=== PATIENT | male | born 1955 | race Caucasian/White ===

== ENCOUNTER 2024-08-08 08:56 | Inpatient (IN) ==
--- NOTE | 2024-08-03 08:47 | Anesthesiology Consultation ---
Date of Service August 03, 2024 Assessment & Plan (1) Encounter for pre-operative examination: - check BMP STAT am DOS, fluid orders to assigned anesthesiologist review of BMP DOS. - surgeon H&P 08/07/24: "...will need to be evaluated by his global cto Dr. Margarita pfeiffer prior to the procedure. He has an appointment later this month we will attempt to move up..." I contacted surgeon's office and Miriam while speaking with Dr. Haywood advised that clearance/more recent evaluation did not occur but that Dr. Haywood advised given most recent echocardiogram he is now not requiring a cardiology evaluation prior to surgery and will addend his note the day of surgery. Case reviewed with Dr. Fonseca who advised nothing additional needed from his standpoint. - Case discussed in detail with Dr. Fonseca including congestive changes on pre- op CXR and creatinine at 1.8 with last comparison 1.7 in 2021 without renal disease listed in PMHx. He advised repeat BMP DOS and otherwise patient is acceptable to proceed. - Medtronic ICD. Case discussed with Dr. Fonseca who advised Medtronic rep is not needed for ICD. - EP 05/04/24: "...persistent atrial arrhythmia that is organized and resulting in worsening heart failure symptoms...cardioversion resulted in early recurrence of this arrhythmia...to undergo ablation sooner than later...opening next week..." - cardiology office visit 03/20/24: "...blood pressure in the 90s systolic...severe 3 vessel CAD with total occlusion of the RCA with left to right collaterals...total occlusion of the mid circumflex with left to left collaterals and a 70% mid LAD lesion and an 80% small apical LAD lesion. Severely dilated Lv with multiple regional wall motion abnormalities and an EF of 25% with severe mitral regurgitation and type 2 diastolic dysfunction...EF 35% which is improved postoperatively...s/p CABG x 3 TRAMMELL to LAD, SVG to the OM and an SVG to the PDA and mitral valve replacement...recurrent atrial flutter...opinion from electrophysiology..." - Per nurse practitioner home assessments on 07/27/24: No known infectious disease contacts, current infectious disease symptoms in past 10 days or COVID positive test result in the past 30 days. Chart Review Chart Review: Acceptable Risk for Surgery and Patient NOT seen in Pre Admission Testing History Surgery Operation Date: 08/08/24 10:10 Proposed Procedures p Endovascular Repair of an Abdominal Aortic Aneurysm - Kel Haywood MD Height/Weight Height: 6 ft 2 in Weight: 88.451 kg Allergies Allergy/AdvReac Type Severity Reaction Status Date / Time ezetimibe [From Zetia] Allergy Intermediate Rash Verified 07/27/24 11:45 atorvastatin [From Lipitor] AdvReac Unknown pancreatiti Verified 07/27/24 11:45 s Medications Home Medications Medication Instructions Recorded Confirmed Last Taken aspirin 81 mg tablet,delayed 81 mg PO QAM 11/28/18 07/27/24 02/11/24 release (Aspir-) metoprolol succinate 25 mg 25 mg PO QAM 11/28/18 07/27/24 02/11/24 tablet,extended release 24 hr sacubitril 24 mg-valsartan 26 mg 1 tab PO BID 07/28/21 07/27/24 02/11/24 tablet (Entresto) allopurinol 100 mg tablet 100 mg PO BID 02/03/24 07/27/24 02/10/24 apixaban 5 mg tablet (Eliquis) 5 mg PO BID 02/03/24 07/27/24 02/08/24 metoprolol succinate 50 mg 50 mg PO HS 02/03/24 07/27/24 02/10/24 tablet,extended release 24 hr omega 0-gef-oyh-fish oil 900 1 cap PO Q3D 02/03/24 07/27/24 02/07/24 mg-1,400 mg capsule,delayed release amoxicillin 500 mg tablet 2,000 mg PO UD PRN dental 07/27/24 07/27/24 Unknown procedures bumetanide 1 mg tablet 1 mg PO 3XWK 07/27/24 07/27/24 Unknown colchicine 0.6 mg capsule 0.6 mg PO UD PRN gout flare 07/27/24 07/27/24 Unknown Past Medical History Medical History (Updated 08/03/24 @ 08:40 by Jacqueline Arreaga PA-C) Aortic aneurysm 4.8, checked in Nov [address] Haywood Atrial fibrillation hx PVC's after heart surgery, dx with Afib approx October 2023; f/u fragin, psh CAD (coronary artery disease) CABG x 3 in 2021 CHF (congestive heart failure) follows with Dr. Rodriguez Familial tremor Gout History of cardioversion [facility], 2023 History of COVID-13 Dec 2023 > resolved History of kidney stones Hx of myocardial infarction 2021 Hyperlipidemia ICD (implantable cardioverter-defibrillator) in place Medtronic, placed 01/2022, [facility] Past Family History Family History Father Myocardial infarction Past Surgical History Surgical History History of cardiac ablation for atrial fibrillation [facility], 2023 History of cardiac cath 2021 > no stents History of colonoscopy (2023) History of coronary artery bypass graft 3 vessels > 2021 at [facility] History of cystoscopy History of heart valve replacement mitral > 2021 at [facility] (done w/ CABG) History of tooth extraction Social History Smoking Status: Former smoker tobacco type: cigarettes Do You Dip or Chew Tobacco: No Smoking End Date: years ago Hx Alcohol Use: Yes alcohol intake frequency: other Alcohol Intake Frequency Comment: 1-2x/year Hx Substance Use: No substance use type: does not use Lab Results Anesthesia Preop Results Results Anesthesia Widget: WBC 5.49 K/ul (4.8-10.8) 07/27/24 Hgb 14.0 g/dl (14.0-18.0) 07/27/24 Hct 40.6 % (42.0-52.0) L 07/27/24 Plt 188 K/uL (130-400) 07/27/24 Na 138 mmol/L (136-145) 07/27/24 K 4.2 mmol/L (3.5-5.1) 07/27/24 Cl 107 mmol/L (98-107) 07/27/24 CO2 25 mmol/L (21-32) 07/27/24 BUN 26 mg/dl (6-23) H 07/27/24 Creat 1.82 mg/dl (0.6-1.4) H 07/27/24 Glucose Level 103 mg/dl (70-99(Fasting)) H 07/27/24 PT 10.9 Seconds (9.0-12.0) 07/31/24 PTT 33 Seconds (21-31) H 07/27/24 INR 1.0 (0.9-1.1) 07/31/24 Blood Type A Positive 07/27/24 Antibody Screen NEGATIVE 07/27/24 Testing Electrocardiogram Date: 07/27/24 Atrial paced rhythm with prolonged AV conduction, rate 68 bpm RBBB Possible old inferior infarct Diffuse nonspecific T wave abnormality Comparison to 09/26/11 EKG Borderline criteria for inferior infarct now present Electronic atrial pacemaker now present Chest X-Ray Date: 07/27/24 The cardiac silhouette is mildly enlarged in size with post-CABG changes. Mild pulmonary vascular congestion. No focal consolidation is identified. Chronic interstitial changes of the lungs. No pleural fluid. No discernible pneumothorax. No displaced acute osseous process identified. Left-sided cardiac ICD with leads projecting over the right atrium and the right ventricle of the heart. Median sternotomy wires. IMPRESSION: Mild congestive changes of the cardiovascular system. Echocardiogram Date: 08/01/24 EF 40% Mildly dilated LV Multiple wall motion abnormalities with moderately reduced systolic function Akinesis of the inferior and inferolateral dang Mild hypertrophy of the interventricular septum Moderately reduced RV systolic function Sclerotic aortic valve with no aortic stenosis or regurgitation Cardiac Catheterization Date: 07/28/21 LM -normal caliber, 20% distal left main LAD -medium caliber, mild diffuse proximal disease, 70% mid stenosis at takeoff of D2, 80% focal stenosis as wraps around apex. Small D1 50% ostial. Medium D2 without significant disease Circumflex -medium caliber, 100% mid occlusion just after takeoff of small OM1. Mid/distal circumflex and obtuse marginals fill partially via left to left collaterals RCA -dominant, medium caliber, mild diffuse proximal to mid disease prior to 98% mid segment disease with heavy calcified latemid RCA disease. KELLY II distal flow with competitive flow in right PDA Summary: 1. Severe multivessel coronary artery disease -Heavily calcified 98% mid RCA disease. PDA partially fills via [id number] collaterals. 100% chronic mid circumflex total occlusion. Distal circumflex partially fills via left to left collaterals. 70% mid LAD, small apical LAD with 80% stenosis. 2. Normal left and right-sided filling pressures 3. Normal pulmonary artery pressures 4. Borderline cardiac output Recommendations: Referral to cardiac surgery for CABG evaluation Other Testing Abdomen pelvis CTA 07/19/24 1. Moderate to severe atherosclerosis with increased size of the long segment infrarenal abdominal aortic aneurysm extending for a craniocaudal length of approximately 10 cm. This measures up to 5.4 x 5.4 cm in AP and transverse dimension. No acute dissection or aneurysm rupture identified. 2. 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 3. High-grade stenosis of the renal arteries, right greater than left. There is near occlusion of the right renal artery. There is associated right renal atrophy with delayed nephrogram secondary to the chronic renal arterial stenosis. 4. No bowel obstruction or bowel wall thickening. 5. Right nephrolithiasis. 6. Incidental findings as above. ICD report 06/23/24 Medtronic AAIR DDDR RA 88% RV 0.05%
--- NOTE | 2024-08-07 13:51 | History & Physical Report ---
Date of Service August 07, 2024 History of Present Illness Primary Care Provider: Gm Ordaz MD Name: ANIVAL RIVERO Patient Number: [id number] : [id number] Date of Service: 07/25/2024 Chief Complaint: AAA HPI: Mr. Rivero is an elderly male who presents to Dr. Haywood's vascular surgery clinic today for follow-up regarding his history of AAA. Patient denies any significant changes in his health, aside from undergoing cardioversion and ablation for atrial flutter in April and continuing on anticoagulation. He has done well following this and has not noticed any irregular heart rhythms. He states he is overall getting around well and denies any new concerns. Otherwise he denies chest pain or abdominal pain. He is able to ambulate without difficulty though does get short of breath. This is not new. No headaches or neurologic deficits. He does have a history of CHF. This has been stable per patient report His CTA abdomen and pelvis from prior to today's appointment demonstrates an infrarenal abdominal aortic aneurysm now measuring 5.4x5.4 cm in its largest diameter. His iliacs demonstrate no significant changes. Current Home Meds: (Last Updated 07/25 15:38) allopurinol (allopurinol 100 mg oral tablet) 1 tab PO bid amoxicillin (amoxicillin 500 mg oral tablet) 4 tabs po 1 hour prior to dental procedure apixaban (apixaban 5 mg oral tablet) 5 mg PO bid aspirin (aspirin 81 mg oral tablet) 81 mg PO Daily bumetanide (bumetanide 1 mg oral tablet) 0.5 tab PO 3x per week with as needed dose daily for weight gain or swelling colchicine (colchicine 0.6 mg oral tablet) TAKE 2 TABLETS BY MOUTH AT THE FIRST SIGN OF FLARE THEN ONE TABLET 1 HOUR AFTER THE FIRST DOSE, THEN 1 TABLET DAILY UNTIL SYMPTOMS RESOLVE metoprolol (metoprolol succinate 50 mg oral tablet, extended release) 1/2 tab q am and 1 tab PO qPM omega-3 polyunsaturated fatty acids (Fish Oil 1000 mg oral capsule) 2,000 mg PO bid sacubitril-valsartan (Entresto 24 mg-26 mg oral tablet) 1 tab PO bid Allergies and Sensitivities: Zetia(Macular rash) Lipitor(pancreatitis) Past Medical History: Problems: Atrial flutter Gout Dental disorder ICD (implantable cardioverter-defibrillator) in place S/P MVR (mitral valve replacement) S/P CABG x 3 Tobacco user Mitral regurgitation Ischemic cardiomyopathy AAA (abdominal aortic aneurysm) History of cigarette smoking Weight disorder History of myocardial infarction History of pancreatitis 3-vessel CAD Abnormal echocardiogram Unifocal PVCs Familial tremor ROUTINE GENERAL MEDICAL EXAMINATION AT A HEALTH CARE FACILITY Finger fracture OBJECTIVE Vitals: Last Updated 07/25/24 15:42 Date Temp BP Location Pulse RR SpO2 Pain 07/25/24 0 07/25/24 120/76 Right Arm 76 94 06/22/24 102/62 Left Arm 55 92 0 Vital Signs are the last 3 documented. Orthostatic: Last Updated 05/09/24 21:12 Date Lying 5 Min BP Lying 5 Min HR Standing 1 Min BP Standing 1 Min HR Standing 3 Min BP Standing 3 Min HR 05/09/24 59907 71 05/09/24 140/90 83 05/09/24 124/69 59 Orthostatic blood pressures are the last 3 documented. Height and Weight: Last Updated 05/09/24 10:35 Date BMI Wt(kg) Wt(lb) Method Ht(cm) (ft-in) Method 05/09/24 25.79 90.2 198 Standing Scale 187 6-1 Patient stated 05/04/24 88.1 194 Standing Scale 03/21/24 89 196 Standing Scale Heights and Weights are the last 3 documented. Physical Exam General: no acute distress, resting comfortably in bed HEENT:normocephalic,atraumatic Cardiovascular: nontachycardic Pulmonary: breathing comfortably on room air, equal chest rise bilaterally Abdomen: soft, nondistended Extremity:WWP. No lesions. Palpable femoral 2+ bilaterally Neuro: CNII-CNXII grossly intact, no focal deficits appreciated Skin: warm and well perfused, no rashes or jaundice appreciated ASSESSMENT: Mr. Rivero is an elderly male who presents to Dr. Haywood's vascular surgery clinic today for follow-up regarding his history of AAA. It has now increased in size to 5.4cm in diameter. It was 4.2cm just over one hear ago and 4.6 in February. Given the growth rate and size of the aneurysm, we discussed continued observation versus repair of his aneurysm in detail. Patient is interested in repair. Therefore we discussed the natural history of aneurysmal disease, treatment options including conservative management as well as endovascular and open repair in detail. Specifically, the risks of endovascular aortic aneurysm repair including bleeding, infection, damage to surrounding structures, need for future procedures, heart attack stroke and were discussed. The patient was offered the opportunity to ask questions. They were answered in detail to his satisfaction. He elected to proceed with EVAR. We will therefore go ahead and schedule this at a mutually acceptable time PLAN: _ 1 ) Plan for AAA repair with EVAR w/ EndoANCHORs. Patient will need to be evaluated by his geoint analyst Dr. Rodriguez prior to the procedure. He has an appointment later this month we will attempt to move up He will need to hold Eliquis 48hr prior to the procedure I saw and evaluated the patient. Discussed with the resident and agree with the resident's findings and plan as documented in the resident's note. I have personally spent__35___ minutes performing [id number] and adb-xlei-in-face activities on this date of service. Activities Include: __x review of the medical record __x obtaining a history _x_ physical exam/evaluation __ review labs __ review radiology reports _x_ counseling/educating patient/family/caregiver __ discussion/referral to other healthcare professional _x_ documenting care in the medical record _x_ independent interpretation of results cta at [facility] __ communication of results to patient/family/caregiver __ coordination of care Signature Line Electronic Signature on File CC: Vero Castellon PA-C [id number] [facility] [place] [address] [facility] [address] Electronically Reviewed/Signed by: Moe Kulkarni MD Author Signature Dt/Tm:07/25/2024 04:18 PM Resident Division of General Surgery Electronically Reviewed/Signed by: MD Ricardo Brockigner Signature Dt/Tm: 07/25/2024 04:20 PM Cutting Machine Offbearer [facility] [place] [place] [address] Result Type: HVI Outpt Note Date of Service: July 25, 2024 16:00 EDT Authorization Status: Final Author or Import Date: MD Cayla, Moe on July 25, 2024 16:18 EDT Verified By: MD Chastity, Kel Arora on July 25, 2024 16:20 EDT Encounter info: [id number], [facility], Clinic, 07/25/2024 - 07/25/2024 Allergies Allergy/AdvReac Type Severity Reaction Status Date / Time ezetimibe [From Zetia] Allergy Intermediate Rash Verified 07/27/24 11:45 atorvastatin [From Lipitor] AdvReac Unknown pancreatiti Verified 07/27/24 11:45 s Home Medications Medication Instructions Recorded Confirmed Type aspirin 81 mg tablet,delayed 81 mg PO QAM 11/28/18 07/27/24 History release (Aspir-) metoprolol succinate 25 mg 25 mg PO QAM 11/28/18 07/27/24 History tablet,extended release 24 hr sacubitril 24 mg-valsartan 26 mg 1 tab PO BID 07/28/21 07/27/24 History tablet (Entresto) allopurinol 100 mg tablet 100 mg PO BID 02/03/24 07/27/24 History apixaban 5 mg tablet (Eliquis) 5 mg PO BID 02/03/24 07/27/24 History metoprolol succinate 50 mg 50 mg PO HS 02/03/24 07/27/24 History tablet,extended release 24 hr omega 1-tka-nox-fish oil 900 1 cap PO Q3D 02/03/24 07/27/24 History mg-1,400 mg capsule,delayed release amoxicillin 500 mg tablet 2,000 mg PO UD PRN dental 07/27/24 07/27/24 History procedures bumetanide 1 mg tablet 1 mg PO 3XWK 07/27/24 07/27/24 History colchicine 0.6 mg capsule 0.6 mg PO UD PRN gout flare 07/27/24 07/27/24 History Past Med/Surg History Problem List Medical History (Updated 08/03/24 @ 08:40 by Jacqueline Arreaga PA-C) CAD (coronary artery disease) CABG x 3 in 2021 History of cardioversion [facility], 2023 Atrial fibrillation hx PVC's after heart surgery, dx with Afib approx October 2023; f/u ricardo, psjessica ICD (implantable cardioverter-defibrillator) in place Medtronic, placed 01/2022, [facility] Gout Familial tremor Hx of myocardial infarction 2021 History of COVID-13 Dec 2023 > resolved History of kidney stones CHF (congestive heart failure) follows with Dr. Rodriguez Hyperlipidemia Aortic aneurysm 4.8, checked in Nov [address] Haywood Surgical History History of cardiac ablation for atrial fibrillation [facility], 2023 History of colonoscopy (2023) History of tooth extraction History of cystoscopy History of coronary artery bypass graft 3 vessels > 2021 at [facility] History of heart valve replacement mitral > 2021 at [facility] (done w/ CABG) History of cardiac cath 2021 > no stents Family History Father Myocardial infarction Social History Smoking Status: Former smoker Smoking End Date: years ago; Second Hand Exposure: No; Do You Dip or Chew Tobacco: No; Tobacco Cessation Education Requested by Patient: No Hx Alcohol Use: Yes Hx Substance Use: No Preferred Language: Egyptian Communication Ability: Effective Rn Medication Required: No Beliefs That Will Affect Care: None Current Living Situation: Significant Other current occupation: Retired Other Information That Helps Us Care for You: No Feels Safe at Home: Yes Safety Concerns: Feels Safe At This Time Assistive Devices: Glasses
[2024-08-08 09:27] LABS: Calcium 9.3 mg/dl (8.6-10.3); Potassium 4.3 mmol/L (3.5-5.1)
[2024-08-08 09:32] LABS: BUN Creatinine Ratio 14.5 (10-20); Creatinine Clr Calc Pharmacy 45.5 ml/min
[2024-08-08] MEDS: SODIUM CHLORIDE 0.9% 1,000 ML IV SCH (09:36)
[2024-08-08] MEDS ORDERED: FLUMAZENIL 0.1 MG/1 ML 10 ML VIAL IV PRN (09:51)
[2024-08-08] MEDS ORDERED: ePHEDrine sulfate 50 MG/ML AMP IV PRN (09:51)
[2024-08-08] MEDS ORDERED: ONDANSETRON INJ 2 MG/ML 2 ML VIAL IV PRN (09:51)
[2024-08-08] MEDS ORDERED: fentaNYL citrate PF 100 MCG/2 ML VIAL IV PRN (09:51)
[2024-08-08] MEDS ORDERED: PROMETHAZINE HCL 6.25 MG in SODIUM CHLORIDE 0.9% 50 ML IV PRN (09:51)
[2024-08-08] MEDS ORDERED: NALOXONE HCL 0.4 MG/1 ML VIAL/CARP IV PRN (09:51)
[2024-08-08] MEDS ORDERED: ATROPINE SULFATE 0.1 MG/ML 10ML SYR IV PRN (09:51)
--- NOTE | 2024-08-08 10:03 | History & Physical Bridge Note ---
Date of Service August 08, 2024 History & Physical Bridge Note I have examined the patient, reviewed the History & Physical and in the interval since the performance of the History & Physical I have noted the following changes of clinical significance: no changes noted
[2024-08-08] MEDS ORDERED: PROPOFOL IV EMULSION 10 MG/ML 20 ML VIAL IV ONE (10:17)
[2024-08-08] MEDS ORDERED: MIDAZOLAM HCL 1 MG/ML 2ML VIAL ONE (10:18)
[2024-08-08] MEDS ORDERED: fentaNYL citrate PF 100 MCG/2 ML VIAL ONE (10:18)
[2024-08-08] MEDS ORDERED: CISATRACURIUM BESYLATE IV SOLN 2 MG/ML 10 ML VIAL IV ONE (10:19)
[2024-08-08] MEDS: ceFAZolin 2000MG 2,000 MG/15 ML SYR IV SCH ×2 (11:08→17:34)
[2024-08-08] MEDS ORDERED: PHENYLEPHRINE HCL 25 MG/250 ML NSS IV ONE (11:25)
[2024-08-08] MEDS ORDERED: ePHEDrine sulfate 50 MG/5 ML SYR ONE (11:26)
[2024-08-08] MEDS ORDERED: HEPARIN SOD (PORCINE) 1000 UNIT/ML ONE (11:26)
[2024-08-08] MEDS ORDERED: GLYCOPYRROLATE 0.2 MG/ML VIAL ONE (11:29)
[2024-08-08] MEDS ORDERED: NEOSTIGMINE METHYLSULFATE 1 MG/ML 10ML VIAL ONE (11:29)
[2024-08-08] MEDS: VISIPAQUE IV PRN (12:29)
--- NOTE | 2024-08-08 12:30 | Post Operative Brief Note ---
Immediate Post Op Note Date of Surgery August 08, 2024 Pre & Post Diagnosis Operation Date: 08/08/24 10:10 Pre-Op Diagnosis: Abdominal Aortic Aneurysm Post-Op Diagnosis: Abdominal Aortic Aneurysm I identified the patient and participated in the time-out.: Yes Procedure Operation Date: 08/08/24 10:10 Actual Procedures p Endovascular Repair of an Abdominal Aortic Aneurysm,Mechanical Closure of Bilateral Femoral Arteries(Bilateral) - Kel Haywood MD Surgeon Kel Haywood MD Electroplating Sales Representative MD Brisa Estimated Blood Loss 50 Findings Consistent with Post-Op Diagnosis Drains Moore Catheter Anesthesia Type General Complications none Disposition Accompanied Patient To Recovery: No Disposition: Recovery Room
--- NOTE | 2024-08-08 12:34 | Operative Report ---
Post Operative Report Pre & Post Diagnosis Operation Date: 08/08/24 10:10 Pre-Op Diagnosis: Abdominal Aortic Aneurysm Post-Op Diagnosis: Abdominal Aortic Aneurysm I identified the patient and participated in the time-out.: Yes Procedure Operation Date: 08/08/24 10:10 Actual Procedures p Endovascular Repair of an Abdominal Aortic Aneurysm,Mechanical Closure of Bilateral Femoral Arteries(Bilateral) - Kel Haywood MD Surgeon Kel Haywood MD Junior Loan Processor Moe Kulkarni MD Estimated Blood Loss 50 Findings Consistent with Post-Op Diagnosis At case completion good infrarenal position of endograft. No endoleak visualized. Graft in good position. Groins hemostatic at completion with bilateral patient internal and external iliac arteries Specimens None Anesthesia Type General Complications None Disposition Accompanied Patient To Recovery: No Indications Mr. Rivero is a pleasant 69 year old male with an infrarenal AAA measuring > 5.5cm in diameter. After discussing the risks vs benfits of repair the patient elected to proceed with EVAR. Description of Procedure The patient was taken to the operating room suite and placed in the supine position. A timeout was performed. Petrona-operative antibiotics were given. The abdomen, bilateral groins, and bilateral thigh was then prepped and draped in a sterile manner. Using ultrasound guidance, the right common femoral artery was accessed using micropuncture technique. Angled glide wire was then inserted. A small skin incision was made at the skin site of entry and subcutaneous tissue was dilated using a hemostat. A 8Fr Manta measuring device was inserted to dilate the artery and measure depth of 4cm. The measuring device was then exchanged for an 8Fr sheath over the wire. The wire was then exchanged for a Cuellar wire. Attention was then turned to the left groin where the left common femoral artery was accessed using micropuncture technique. An angled glide wire was then inserted. A small skin incision was made at the skin site of entry and subcutaneous tissue was dilated using a hemostat. A 8Fr Manta measuring device into the left common femoral artery over the angled glide wire, measuring a depth of 4.5cm. The measuring device was then exchanged for an 8Fr sheath over the wire. The wire was then exchanged for a Cuellar wire. An 12Fr DrySeal sheath was then advanced into the infrarenal aorta under fluoroscopic imaging. On the right side, the 8Fr sheath was exchanged for a 12Fr dilator followed by an exchange for the main body device of the [place] Excluder, 26mm x 14.5 x 12cm. This was advanced up the right side to the level of about L2. A pigtail catheter was advanced over the wire on the left, the wire was removed and the pigtail was connected to the power injector. An aortogram was taken and the level of the inferior origin of the bilateral renal arteries were marked. The main body device was deployed to the opening of the contralateral gate. From the left side, the pigtail catheter was exchanged for an angled catheter over an angled glide wire. The contralateral gate was cannulated using a Confienza wire. This was spun with no resistance in the infrarenal neck. A pigtail was then advanced to the top of the graft on the left and an image was taken marking the origin of the common and internal iliac artery on the left. An appropriately sized 16mm x 16mm x13.5 mm [place] limb was then advanced and deployed. Attention was moved to the right side where an appropriately sized 16mm x 14.5mm x 12cm limb was deployed after being appropriately measured using a pigtail catheter and hand injection. A Q50 balloon was then used with hand insufflation to balloon the aortic neck, bilaterally at the flow divider, bilateral common iliac arteries, a nd the distal extend of the endograft. A completion angiogram was performed demonstrating good seal with no endoleak visualized. The left renal artery was patent. The right renal artery was chronically occluded. The bilateral internal iliac and external iliac arteries were patent. The left DrySeal sheath was exchanged for the 14Fr Manta device. The Manta was deployed. Adequate hemostasis was obtained. Pressure was held. The right DrySeal sheath was exchanged for the 18Fr Manta device. The Manta was deployed. Adequate hemostasis was obtained. Patient was extubated and taken to the PACU in stable condition. A total of 12.6min of fluoroscopy time, 231 mGy and 95cc contrast used for the duration of the case. Dr. Haywood was present and scrubbed for the entire procedure. I attest to the content of the Intraoperative Record and any orders documented therein. Any exceptions are noted below. Supervising Physician Co-Signing Physician Notes Kel Haywood MD
--- OUTSIDE RECORDS SUMMARY | 2024-08-08 13:04 | External Medical Summary | Continuity of Care Document ---
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 Name Role Phone Vero Castellon Primary Care Physician [phone] Encounter [facility] [id number] Date(s): 08/01/24 - 08/01/24 [facility] [address] [facility] [address] [facility], [address] [place] [address] [phone] Discharge Disposition: Home or Self Care Attending Physician: MD Haywood Eugene J Referring Physician: AREN Castellon Kimberly A Encounter Type: Clinic Allergies, Adverse Reactions, Alerts Substance Criticality Severity Reaction Reaction Severity Status Lipitor pancreatitis Active Zetia Unable to assess criticality Moderate Macular jenny h Active Immunizations Not Given Vaccine Date Status Refusal Reason influenza virus vaccine, inactivated 02/09/24 Not Given Permanently Refused Medications allopurinol 100 mg oral tablet Start: 03/17/24 8:59:00 AM EST, 1 tab, PO, bid, Disp# 180 tab, Refills: 3, Pharmacy: [facility] Start Date: 03/17/24 Status: Ordered Quantity: 180.0 Unit: tab Repeat number: 1 amoxicillin 500 mg oral tablet Start: 12/20/23 9:24:00 AM EDT, See Instructions, Disp# 12 tab, Refills: 3, 4 tabs po 1 hour prior to dental procedure, Pharmacy: [id number] Start Date: 12/20/23 Status: Ordered Quantity: 12.0 Unit: tab Repeat number: 4 apixaban 5 mg oral tablet Start: 02/25/24 10:07:00 AM EDT, 1 tab, PO, bid, Disp# 180 tab, Refills: 3, Pharmacy: [facility] Start Date: 02/25/24 Status: Ordered Quantity: 180.0 Unit: tab Repeat number: 4 aspirin 81 mg oral tablet Start: 02/22/14 11:03:00 AM EDT, 1 tab, PO, Daily, Disp# 90 tab, Refills: 3, other Start Date: 02/22/14 Stop Date: 02/17/15 Status: Ordered Quantity: 90.0 Unit: tab Repeat number: 4 bumetanide 1 mg oral tablet Start: 10/08/23 3:52:00 PM EDT, See Instructions, Disp# 30 tab, Refills: 3, 0.5 tab PO 3x per week with as needed dose daily for weight gain or swelling, other Start Date: 10/08/23 Status: Ordered Quantity: 30.0 Unit: tab Repeat number: 4 colchicine 0.6 mg oral tablet Start: 11/02/23 7:16:00 AM EDT, See Instructions, Disp# 30 tab, Refills: 1, TAKE 2 TABLETS BY MOUTH AT THE FIRST SIGN OF FLARE THEN ONE TABLET 1 HOUR AFTER THE FIRST DOSE, THEN 1 TABLET DAILY UNTIL SYMPTOMS RESOLVE, Pharmacy: [id number] Start Date: 11/02/23 Status: Ordered Quantity: 30.0 Unit: tab Repeat number: 2 Entresto 24 mg-26 mg oral tablet Start: 04/27/24 9:01:00 AM EST, 1 tab, PO, bid, Disp# 180 tab, Refills: 3, Note to Pharmacy: please change to 90 day supply, Pharmacy: [id number] Start Date: 04/27/24 Status: Ordered Quantity: 180.0 Unit: tab Repeat number: 4 Fish Oil 1000 mg oral capsule Start: 07/08/23 4:11:00 PM EDT, 2 cap, PO, bid Start Date: 07/08/23 Status: Ordered Repeat number: 1 metoprolol succinate 50 mg oral tablet, extended release Start: 09/22/23 3:20:00 PM EDT, See Instructions, Disp# 135 tab, Refills: 3, 1/2 tab q am and 1 tab PO qPM, Note to Pharmacy: dose change, Pharmacy: [facility] Start Date: 09/22/23 Status: Ordered Quantity: 135.0 Unit: tab Repeat number: 4 Problem List Condition Confirmation Course Effective Dates Status H ealth Status Informant AAA (abdominal aortic aneurysm) Confirmed Active Atrial flutter Confirmed Active 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 Confirmed Active Dental disorder Confirmed Active Abnormal echocardiogram Confirmed Active Familial tremor 1 Confirmed Active Finger fracture 2 Confirmed Active Gout Confirmed Active History of pancreatitis 3 Confirmed Active S/P CABG x 3 Confirmed Active S/P MVR (mitral valve replacement) Confirmed Active History of myocardial infarction 4 Confirmed Active Ischemic cardiomyopathy Confirmed Active Mitral regurgitation Confirmed Active ROUTINE GENERAL MEDICAL EXAMINATION AT A HEALTH CARE FACILITY Confirmed Active History of cigarette smoking Confirmed Active Tobacco user Confirmed Active 3-vessel CAD Confirmed Active Unifocal PVCs Confirmed Active Weight disorder Confirmed Active 1benign 2in pt's past medical history 3attributed to atorvastatin 4apical/inferior/septal Procedures Procedure Date Related Diagnosis Body Site Status Colonoscopy 1 02/11/24 Completed Ultrasound scan of abdominal aorta 2 12/16/23 Completed Coronary angiography 3 07/28/21 Co mpleted Screening colonoscopy 4, 5 01/19/14 Completed ureteral stent Completed 1The rectu,m, sigmoid colon, descending colon, splenic flexure, transverse colon hepatic flexure, ascending colon and cecum are normal. No specimens collected Repeat in 5 years 2AAA enlarging, now at 4.9 x 4.8 31. Severe multivessel coronary artery disease -Heavily calcified 98% mid RCA disease. PDA partiallyfills via raue-lk-pishe collaterals. –100% chronic mid circumflex total occlusion. Distal circumflex partially fills via left to left collaterals. –70% mid LAD, small apical LAD with 80% stenosis. 2. Normal left and right-sided filling pressures 3. Normal pulmonary artery pressures 4. Borderline cardiac output 4resected polyps internal hemorrhoids 5repeat 10 yrs Results Radiology Reports * Exam Date Time Procedure Performing Provider Status 08/01/24 2:54 PM Echo TransTHORacic TTE Limited w/ Cont ; Final Notes: (Echo TransTHORacic TTE Limited w/ Cont) Reason For Exam: post ablation Echo TransTHORacic TTE Limited w/ Cont Report Signatures Finalized by Dr. Owen Rodriguez MD on 08/02/2024 05:08 PM [place] Act 112: Yes - Discussed with patient Summary 1. Technically difficult study; Successfully enhanced with Definity contrast per lab protocol for better endocardial definition. 2. Limited 2D and spectral Doppler imaging performed to evaluate left ventricular systolic function. 3. Mildly dilated left ventricle. 4. Multiple wall motion abnormalities (see diagram) with moderately reduced systolic function. Ejection fraction calculated by Biplane Chávez's method is 40%. 5. Akinesis of the inferior and inferolateral dang. 6. Mild hypertrophy of the interventricular septum. 7. Unable to assess LV diastology due to MV replacement. 8. No LV thrombus. 9. Normal RV size. 10. Moderately Reduced RV systolic function. TAPSE is 1.1 cm. 11. Sclerotic aortic valve with no aortic stenosis or regurgitation. 12. Normal biatrial size. 13. Compared to 02/2024 the LV fxn has improved from 20% to 40% and he is now in NSR based on mitral inflow. The LVEF of 40% is similar to the echo of 2021. Patient Info Name: ANIVAL LUCAS Age: 69 years : 1955 Gender: Male Ht: 188 cm Wt: 88 kg BSA: 2.15 m2 HR: 57 bpm BP: 142 / 76 mmHg Heart Rhythm: Sinus Bradycardia Technical Quality: Technically difficult study Exam Date: 08/01/2024 2:16 PM Exam Location: [facility] Patient Status: Outpatient Staff Ordering Physician: Kel Haywood Paper Cutter Operator: Yasmine Hollis RDCS, RVT Attending Physician: Kel Haywood Study Info [facility] [id number] [phone] [phone] - Indications [id number] - Preoperative Exam Procedure(s) * A limited two-dimensional transthoracic echocardiogram was performed. * Color Doppler was performed. * Limited spectral Doppler was performed. * Paper Cutter Operator, Yasmine Hollis RDCS, RVT, provided education about ultrasound enhancing agent to the patient. * Failed 2D images were enhanced with Definity per lab protocol. Exam Type: Cardiac Basic Left Ventricle Mildly dilated left ventricle. Multiple wall motion abnormalities (see diagram) with moderately reduced systolic function. Ejection fraction calculated by Biplane Chávez's method is 40%. Akinesis of the inferior and inferolateral dang. Mild hypertrophy of the interventricular septum. Unable to assess LV diastology due to MV replacement. No LV thrombus. Right Ventricle Normal RV size. Moderately Reduced RV systolic function. TAPSE is 1.1 cm. Left Atrium Normal left atrial size. Right Atrium Normal right atrial size. Aortic Valve Sclerotic aortic valve with no aortic stenosis or regurgitation. Pericardium/Pleural No pericardial effusion. Left Ventricular Outflow Tract Name Value Normal LVOT Doppler LVOT Peak Velocity 0.99 m/s LVOT Peak Gradient 4 mmHg LVOT Mean Gradient 2 mmHg LVOT VTI 27.06 cm Mitral Valve Name Value Normal MV Doppler MV PHT 54 ms MV Diastolic Function MV E Peak Velocity 1.25 m/s <=0.50 MV A Peak Velocity 1.60 m/s MV E/A 0.78 <=0.80 MV Decel Time 185 ms MV Annular TDI MV Septal s' Velocity 3.88 cm/s MV Septal e' Velocity 2.81 cm/s >=7.00 MV E/e' (Septal) 44.4 <=8.0 MV Lateral s' Velocity 5.06 cm/s MV Lateral e' Velocity 4.50 cm/s >=10.00 MV E/e' (Lateral) 27.74 <=8.00 MV e' Average 3.66 MV E/e' (Average) 36.06 <=14.00 Ventricles Name Value Normal LV Dimensions 2D/MM IVS Diastolic Thickness (2D) 1.1 cm 0.6-1.0 LVID Diastole (2D) 5.7 cm 3.6-5.6 LVIW Diastolic Thickness (2D) 0.7 cm 0.6-1.0 LVID Systole (2D) 4.1 cm 2.5-4.0 LV Mass (2D Cubed) 195.50 g 88.00-224.00 Relative Wall Thickness (2D) 0.24 LV Fractional Shortening/Ejection Fraction 2D/MM LV Fractional Shortening (2D) 28 % 25-43 LV Diastolic Volume (4C MOD) 183 ml LV Diastolic Volume (2C MOD) 178 ml LV Diastolic Volume (BP MOD) 180 ml 62-150 LV Diastolic Volume Index (BP MOD) 83.61 ml/m2 34.00-74.00 LV Systolic Volume (BP MOD) 111 ml 21-61 LV Systolic Volume Index (BP MOD) 51.44 ml/m2 11.00-31.00 LV EF (BP MOD) 38 % 57-68 LV SV (BP MOD) 69.30 ml RV Dimensions 2D/MM RV Basal Diastolic Dimension 3.3 cm 2.5-4.1 TAPSE 1.1 cm >=1.7 Atria Name Value Normal LA Dimensions LA Area (4C) 23.3 cm2 LA Length (4C) 5.6 cm LA Area (2C) 19.8 cm2 LA Length (2C) 5.4 cm LA Volume (4C A-L) 82.41 ml LA Volume (2C A-L) 61.27 ml LA Volume (BP A-L) 72 ml 18-58 LA Volume Index (BP A-L) 33.46 ml/m2 <=34.00 RA Dimensions RA Area (4C) 12.1 cm2 <=18.0 Final Signed by:DO Rodriguez Jason D Signed (Electronic Signature):08/01/2024 2:16 p Social History Social History Type Response Tobacco Former smoker, Stop ed age 59 Years. Smoking Status Former Smoker, quit > 1 yr Sex Male Sex Representation Male (finding) Implantable Device List Procedure Provider Procedure Date Device Type Site Unknown Unknown 10/20/21 Unknown Unknown Device Identifier Serial Number Lot or Batch Number Manufacturing Date Expiration Date Distinct Identification Code MRI Safety Implantable Status Assigning Authority Unknown Unknown N/A Unknown 03/24/25 Unknown Unknown Active Mono brownlee Patient Care team information Care Team Personnel Name: AREN Castellon, Vero Larson Position: Physician Asst Mosher - Family Med Member Role: Primary Care Provider Address: [address] [place], [place] [address]GRID: [phone] Name: Oliverio Goel Amy E Position: Pharmacist Member Role: Pharmacy - Lifetime Address: [facility] [address] [place] [address] Name: ZUHAIR Heaton Mayeen R Position: Nurse Pract - CT Surgery Member Role: Lifetime Relationship Address: [address] [place] [address] Telecom: [phone] Name: Oliverio Mace Francis Position: Pharmacist Schedule II Member Role: Pharmacy - Lifetime Address: [facility] [address] [place] [address] Name: Oliverio Santos Ann Position: Pharmacist Member Role: Pharmacy - Lifetime Name: AREN Gold Lynn Position: Physician Exchange Administrator Exempt - Vasc Surg Member Role: Lifetime Relationship Address: [address] [place] [address] [address] [place] [address] Telecom: [phone] Care Team Related Persons Name: DOMINIC ALBARRAN Insurance Providers Guarantor name: ANIVAL LUCAS Health Plan Information #: 1 Payer: [employer] P[employer] Member Number: [id number] Policy Number: NA Group Number: [id number] Health Plan Information #: 2 Payer: [employer] Member Number: [id number] Policy Number: NA Group Number: [id number]
[2024-08-08 13:24] LABS: Hematocrit (blood only) 36.5 % (42.0-52.0); Hemoglobin 12.5 g/dl (14.0-18.0)
--- NOTE | 2024-08-08 13:44 | Anesthesiology Progress Note ---
Date of Service August 08, 2024 Anesthesia Post Procedure Vital Signs Vital Signs: Temp Pulse Pulse Resp BP BP BP 08/08/24 13:25 36.5 C 50 L 13 135/70 137/71 08/08/24 13:15 50 L 13 134/73 136/75 08/08/24 13:05 50 L 14 138/60 125/74 08/08/24 12:55 51 L 18 138/59 L 129/59 L 08/08/24 12:45 50 L 20 166/53 H 129/76 08/08/24 12:38 36.2 C L 57 L 17 128/71 08/08/24 09:15 36.5 C 77 18 149/90 H 157/96 H Pulse Ox O2 Del Method O2 Flow Rate 08/08/24 13:25 99 Nasal Cannula 2 08/08/24 13:15 98 Nasal Cannula 2 08/08/24 13:05 98 Nasal Cannula 2 08/08/24 12:55 98 Nasal Cannula 2 08/08/24 12:45 100 Oxymask 4 08/08/24 12:38 100 Oxymask 6 08/08/24 09:15 95 Room Air Transfer of Care Handoff Completed per policy Notes Mental Status: alert / awake / arousable Patient Amnestic to Procedure: Yes Nausea / Vomiting: adequately controlled Pain: adequately controlled Airway Patency, RR, SpO2: stable & adequate BP & HR: stable & adequate Hydration State: stable & adequate Anesthetic Complications: no major complications apparent
[2024-08-08] MEDS ORDERED: MoRPHine SULFATE 4 MG/ML 1 ML CARP\\VIAL IV PRN (13:53)
[2024-08-08] MEDS ORDERED: COLCHICINE 0.6 MG TAB PO PRN (13:57)
[2024-08-08] MEDS: LACTATED RINGER'S 1,000 ML IV SCH (14:27)
[2024-08-08] MEDS: OMEGA-3 (PURIFIED FISH OIL) 1 GM CAP PO SCH (14:29)
--- NOTE | 2024-08-08 18:02 | Critical Care Consultation ---
Date of Consultation August 08, 2024 Assessment & Plan (1) Aortic aneurysm: Reason Critically Ill: Postop day 0 from endovascular AAA repair PLAN: Neuro: Analgesia per vascular surgery Resp: Tolerating room air CV: Known coronary artery disease - Continue aspirin, beta-octavia, ASHUTOSH inhibitor History of atrial fibrillation -Anticoagulation with Eliquis Fluids/Renal: Tolerating oral diet fluids ID: No indication for anti-infectives GI/Nutrition: Tolerating diet Heme: Anticipated mild postprocedural anemia DVT prophylaxis: Eliquis Endocrine: ICU hyperglycemia protocol Vascular access: Peripheral IV Code Status: Full code Disposition: ICU: Critical care will sign off (2) CAD (coronary artery disease): (3) History of cardioversion: (4) Atrial fibrillation: (5) Hyperlipidemia: History of Present Illness Reason for Consultation: PEVAR postop day 0 Attending Physician: Kel Haywood MD History of Present Illness Patient is a 69-year-old male who underwent endovascular repair of an abdominal aortic aneurysm. Mildly sore at the vascular entry sites otherwise without significant complaint. Has tolerated eating a meal. Allergies Allergy/AdvReac Type Severity Reaction Status Date / Time ezetimibe [From Zetia] Allergy Intermediate Rash Verified 08/08/24 09:04 atorvastatin [From Lipitor] AdvReac Unknown pancreatiti Verified 08/08/24 09:04 s Home Medications Medication Instructions Recorded Confirmed Type aspirin 81 mg tablet,delayed 81 mg PO QAM 11/28/18 08/08/24 History release (Aspir-) metoprolol succinate 25 mg 25 mg PO QAM 11/28/18 08/08/24 History tablet,extended release 24 hr sacubitril 24 mg-valsartan 26 mg 1 tab PO BID 07/28/21 08/08/24 History tablet (Entresto) allopurinol 100 mg tablet 100 mg PO BID 02/03/24 08/08/24 History apixaban 5 mg tablet (Eliquis) 5 mg PO BID 02/03/24 08/08/24 History metoprolol succinate 50 mg 50 mg PO HS 02/03/24 08/08/24 History tablet,extended release 24 hr omega 9-dwe-vul-fish oil 900 1 cap PO Q3D 02/03/24 08/08/24 History mg-1,400 mg capsule,delayed release amoxicillin 500 mg tablet 2,000 mg PO UD PRN dental 07/27/24 08/08/24 History procedures bumetanide 1 mg tablet 1 mg PO 3XWK 07/27/24 08/08/24 History colchicine 0.6 mg capsule 0.6 mg PO UD PRN gout flare 07/27/24 08/08/24 History Patient History Medical History CAD (coronary artery disease) CABG x 3 in 2021 [place] [facility] [place] [id number] Atrial fibrillation hx PVC's after heart surgery, dx with Afib approx October 2023; f/u ricardo, psh ICD (implantable cardioverter-defibrillator) in place [employer]tr[employer], [place]/2022, [facility] Gout Familial tremor Hx of myocardial infarction 2021 History of COVID-13 Dec 2023 > resolved History of kidney stones CHF (congestive heart failure) follows with Dr. Rodriguez Hyperlipidemia Aortic aneurysm 4.8, checked in Nov [address] Haywood Surgical History History of cardiac ablation for atrial fibrillation [facility] History of colonoscopy (2023) History of tooth extraction History of cystoscopy History of coronary artery bypass graft 3 vessels > 2021 at [facility] History of heart valve replacement mitral > 2021 [place] [facility] (done w/ CABG) History of cardiac cath 2021 > no stents Family History Father Myocardial infarction Social History Smoking Status: Former smoker Smoking End Date: years ago; Second Hand Exposure: No; Do You Dip or Chew Tobacco: No; Tobacco Cessation Education Requested by Patient: No Hx Alcohol Use: Yes Hx Substance Use: No Preferred Language: Mongolian Communication Ability: Effective Helpdesk Administrator Required: No Beliefs That Will Affect Care: None Current Living Situation: Significant Other current occupation: Retired Other Information That Helps Us Care for You: No Feels Safe at Home: Yes Safety Concerns: Feels Safe At This Time Assistive Devices: Glasses Physical Exam Physical Exam: General: Alert. nontoxic. Skin: Warm, dry, Head: Atraumatic Ears, nose, mouth and throat: airway patent Cardiovascular: Normal peripheral perfusion Respiratory: no respiratory distress Gastrointestinal: Non distended Musculoskeletal: No deformity bilateral groins are soft without hematoma dressing in place Results & Data Results & Data Vital Signs (Past 12 Hours) Vital Signs Temp Pulse Pulse Pulse Resp BP BP 08/08/24 15:03 50 L 17 08/08/24 15:00 121/68 08/08/24 15:00 121/68 08/08/24 15:00 121/68 08/08/24 15:00 121/68 08/08/24 14:48 50 L 17 08/08/24 14:30 50 L 22 08/08/24 14:21 50 L 14 08/08/24 14:00 129/63 08/08/24 14:00 129/63 08/08/24 13:57 50 L 11 L 08/08/24 13:54 50 L 13 08/08/24 13:25 36.5 C 50 L 13 08/08/24 13:15 50 L 13 08/08/24 13:05 50 L 14 08/08/24 12:55 51 L 18 08/08/24 12:45 50 L 20 08/08/24 12:38 36.2 C L 57 L 17 08/08/24 09:15 36.5 C 77 18 149/90 H BP BP Pulse Ox O2 Del Method O2 Flow Rate 08/08/24 15:03 96 Room Air 08/08/24 15:00 08/08/24 15:00 08/08/24 15:00 08/08/24 15:00 08/08/24 14:48 96 08/08/24 14:30 96 08/08/24 14:21 96 08/08/24 14:00 08/08/24 14:00 08/08/24 13:57 98 08/08/24 13:54 97 08/08/24 13:25 135/70 137/71 99 Nasal Cannula 2 08/08/24 13:15 134/73 136/75 98 Nasal Cannula 2 08/08/24 13:05 138/60 125/74 98 Nasal Cannula 2 08/08/24 12:55 138/59 L 129/59 L 98 Nasal Cannula 2 08/08/24 12:45 166/53 H 129/76 100 Oxymask 4 08/08/24 12:38 128/71 100 Oxymask 6 08/08/24 09:15 157/96 H 95 Room Air Critical Care Results & Data Vital Signs (Past 12 Hours) Vital Signs Temp Pulse Pulse Pulse Resp BP BP 08/08/24 15:03 50 L 17 08/08/24 15:00 121/68 08/08/24 15:00 121/68 08/08/24 15:00 121/68 08/08/24 15:00 121/68 08/08/24 14:48 50 L 17 08/08/24 14:30 50 L 22 08/08/24 14:21 50 L 14 08/08/24 14:00 129/63 08/08/24 14:00 129/63 08/08/24 13:57 50 L 11 L 08/08/24 13:54 50 L 13 08/08/24 13:25 36.5 C 50 L 13 08/08/24 13:15 50 L 13 08/08/24 13:05 50 L 14 08/08/24 12:55 51 L 18 08/08/24 12:45 50 L 20 08/08/24 12:38 36.2 C L 57 L 17 08/08/24 09:15 36.5 C 77 18 149/90 H BP BP Pulse Ox O2 Del Method O2 Flow Rate 08/08/24 15:03 96 Room Air 08/08/24 15:00 08/08/24 15:00 08/08/24 15:00 08/08/24 15:00 08/08/24 14:48 96 08/08/24 14:30 96 08/08/24 14:21 96 08/08/24 14:00 08/08/24 14:00 08/08/24 13:57 98 08/08/24 13:54 97 08/08/24 13:25 135/70 137/71 99 Nasal Cannula 2 08/08/24 13:15 134/73 136/75 98 Nasal Cannula 2 08/08/24 13:05 138/60 125/74 98 Nasal Cannula 2 08/08/24 12:55 138/59 L 129/59 L 98 Nasal Cannula 2 08/08/24 12:45 166/53 H 129/76 100 Oxymask 4 08/08/24 12:38 128/71 100 Oxymask 6 08/08/24 09:15 157/96 H 95 Room Air Lab & Micro Results (Past 24 Hours) Hgb 12.5 g/dl (14.0-18.0) L 08/08/24 Hct 36.5 % (42.0-52.0) L 08/08/24 Na 140 mmol/L (136-145) 08/08/24 K 4.3 mmol/L (3.5-5.1) 08/08/24 Cl 106 mmol/L (98-107) 08/08/24 CO2 29 mmol/L (21-32) 08/08/24 Anion Gap 5 (3-11) 08/08/24 BUN 25 mg/dl (6-23) H 08/08/24 Creatinine 1.73 mg/dl (0.6-1.4) H 08/08/24 BUN/Creatinine Ratio 14.5 (10-20) 08/08/24 Glu 97 mg/dl (70-99(Fasting)) 08/08/24 Ca 9.3 mg/dl (8.6-10.3) 08/08/24 Calcium Level 9.3 mg/dl (8.6-10.3) 08/08/24 09:04 I & O Totals 24 Hours 08/07/24 08/08/24 08/09/24 06:59 06:59 06:59 Intake Total 500 / 500 Output Total 151 / 151 Balance 349 / 349 Cumulative 07/26/24 10:18 thru 08/08/24 15:54 Intake Total 500 Output Total 151 Balance 349 RT Ventilator Mngmt (Last Documented) Ventilator Ordered Settings Respiratory Rate 17 08/08/24 15:03 Ventilator - PT Measurements Respiratory Rate 17 Coding Level of Care Code 05343 IN/OBS CONSULT LVL 2,35M Diagnoses Aortic aneurysm I71.9 CAD (coronary artery disease) I25.10 History of cardioversion Z92.89 Atrial fibrillation I48.91 Hyperlipidemia E78.5
[2024-08-08] MEDS: oxyCODONE/ACETAMINOPHEN 5mg/325mg TAB PO PRN (18:05)
[2024-08-08] MEDS: allopurinoL 100 MG TAB PO SCH (20:42)
[2024-08-08] MEDS: METOPROLOL SUCC 50MG EXT REL TAB PO SCH (20:42)
[2024-08-08] MEDS: VALSARTAN/SACUBITRIL 26/24MG TAB PO SCH (20:43)
[2024-08-09 05:24] LABS: Basophils # (auto) 0.03 K/uL (0.00-0.20); Basophils % (auto) 0.4 %; Eosinophils % (auto) 1.3 %; Hematocrit (blood only) 35.3 % (42.0-52.0); Hemoglobin 12.2 g/dl (14.0-18.0); Immature Granulocytes # (auto) 0.05 K/uL (0.01-0.20); Immature Granulocytes % (auto) 0.7 %; Lymphocytes # (auto) 0.51 K/uL (1.20-3.40); Lymphocytes % (auto) 6.8 %; Mean Corpuscular Hgb Conc 34.6 g/dL (32.0-36.0); Mean Corpuscular Volume 89.6 fL (80.0-100.0); Mean Platelet Volume 10.3 fL (9.4-12.4); Monocytes % (auto) 6.7 %; Neutrophils # (auto) 6.27 K/uL (1.40-6.50); Neutrophils % (auto) 84.1 %; Platelet Count 148 K/uL (130-400); RDW Coefficient of Variation 14.3 % (11.5-14.5); RDW Standard Deviation 46.9 fL (36.4-46.3); Red Blood Count 3.94 M/uL (4.70-6.10); White Blood Count 7.46 K/ul (4.8-10.8)
[2024-08-09 05:42] LABS: Calcium 8.4 mg/dl (8.6-10.3); Potassium 4.1 mmol/L (3.5-5.1)
[2024-08-09 05:48] LABS: BUN Creatinine Ratio 12.8 (10-20); Creatinine Clr Calc Pharmacy 52.9 ml/min
[2024-08-09 07:21] VITALS: TEMP 98.1
[2024-08-09] MEDS: METOPROLOL SUCC 25MG EXT REL TAB PO SCH (08:18)
[2024-08-09] MEDS: ASPIRIN 81 MG ECTAB PO SCH (08:18)
[2024-08-09] MEDS: BUMETANIDE 1 MG TAB PO SCH (08:18)
[2024-08-09] MEDS: APIXABAN 5 MG TABLET PO SCH (08:18)
[2024-08-09 12:26] VITALS: RESP 17; O2SAT 92
--- NOTE | 2024-08-09 12:46 | Surgery Progress Note ---
Date of Service August 09, 2024 Assessment & Plan (1) Status post endovascular aneurysm repair: Plan: Patient without complaint. POD # 1 from a PEVAR Will d/c today Admission and Anticipated Discharge Date Admission Date: August 08, 2024 Subjective Patient only complaint is mild groin discomfort. Denies leg or back pain Physical Exam Constitutional: WD/WN, vitals as above Respiratory: normal respiratory effort; no respiratory distress Cardiovascular: Rate/Rhythm: regular rate and regular rhythm Gastrointestinal (Abdomen): Inspection/Auscultation: abdomen not distended Percussion/Palpation: abdomen soft Skin: + incision (puncture sites without swell ing) Psychiatric: A+Ox3, euthymic affect Results & Data Vital Signs (Past 12 Hours) Vital Signs Temp Pulse Pulse Resp BP BP BP 08/09/24 12:09 58 L 17 08/09/24 12:02 126/53 L 08/09/24 12:00 138/61 08/09/24 11:54 61 19 08/09/24 11:00 50 L 15 08/09/24 11:00 132/65 08/09/24 10:09 50 L 16 08/09/24 10:00 137/62 08/09/24 09:27 56 L 20 08/09/24 09:03 50 L 17 08/09/24 09:01 125/62 08/09/24 08:57 51 L 14 08/09/24 08:07 59 L 16 152/65 H 148/68 H 08/09/24 08:03 63 18 08/09/24 08:01 148/68 H 08/09/24 08:00 08/09/24 08:00 61 08/09/24 07:57 73 20 08/09/24 07:20 36.7 C 50 L 16 149/57 H 139/71 08/09/24 07:03 50 L 15 08/09/24 07:00 139/71 08/09/24 06:00 50 L 13 146/60 H 123/60 08/09/24 05:00 143/56 H 127/70 08/09/24 04:56 63 12 151/60 H 08/09/24 04:00 157/71 H 08/09/24 03:57 58 L 13 08/09/24 03:01 137/68 08/09/24 03:00 50 L 6 L 08/09/24 02:00 55 L 13 08/09/24 02:00 50 L 12 137/68 08/09/24 01:00 51 L 12 147/56 H 141/71 H Pulse Ox O2 Del Method 08/09/24 12:09 92 08/09/24 12:02 08/09/24 12:00 08/09/24 11:54 93 08/09/24 11:00 92 08/09/24 11:00 08/09/24 10:09 93 08/09/24 10:00 08/09/24 09:27 93 08/09/24 09:03 92 08/09/24 09:01 08/09/24 08:57 95 08/09/24 08:07 93 Room Air 08/09/24 08:03 93 08/09/24 08:01 08/09/24 08:00 Room Air 08/09/24 08:00 08/09/24 07:57 95 08/09/24 07:20 93 Room Air 08/09/24 07:03 96 08/09/24 07:00 08/09/24 06:00 93 Room Air 08/09/24 05:00 08/09/24 04:56 93 Room Air 08/09/24 04:00 08/09/24 03:57 93 08/09/24 03:01 08/09/24 03:00 93 08/09/24 02:00 96 08/09/24 02:00 95 Room Air 08/09/24 01:00 93 Room Air
--- NOTE | 2024-08-09 12:50 | Discharge Summary ---
Date of Service August 09, 2024 Admission HPI Per Admitting Provider Name: ANIVAL RIVERO Patient Number: [id number] : 1955 Date of Service: 07/25/2024 Chief Complaint: AAA HPI: Mr. Rivero is an elderly male who presents to Dr. Haywood's vascular surgery clinic today for follow-up regarding his history of AAA. Patient denies any significant changes in his health, aside from undergoing cardioversion and ablation for atrial flutter in April and continuing on anticoagulation. He has done well following this and has not noticed any irregular heart rhythms. He states he is overall getting around well and denies any new concerns. Otherwise he denies chest pain or abdominal pain. He is able to ambulate without difficulty though does get short of breath. This is not new. No headaches or neurologic deficits. He does have a history of CHF. This has been stable per patient report His CTA abdomen and pelvis from prior to today's appointment demonstrates an infrarenal abdominal aortic aneurysm now measuring 5.4x5.4 cm in its largest diameter. His iliacs demonstrate no significant changes. Current Home Meds: (Last Updated 07/25 15:38) allopurinol (allopurinol 100 mg oral tablet) 1 tab PO bid amoxicillin (amoxicillin 500 mg oral tablet) 4 tabs po 1 hour prior to dental procedure apixaban (apixaban 5 mg oral tablet) 5 mg PO bid aspirin (aspirin 81 mg oral tablet) 81 mg PO Daily bumetanide (bumetanide 1 mg oral tablet) 0.5 tab PO 3x per week with as needed dose daily for weight gain or swelling colchicine (colchicine 0.6 mg oral tablet) TAKE 2 TABLETS BY MOUTH AT THE FIRST SIGN OF FLARE THEN ONE TABLET 1 HOUR AFTER THE FIRST DOSE, THEN 1 TABLET DAILY UNTIL SYMPTOMS RESOLVE metoprolol (metoprolol succinate 50 mg oral tablet, extended release) 1/2 tab q am and 1 tab PO qPM omega-3 polyunsaturated fatty acids (Fish Oil 1000 mg oral capsule) 2,000 mg PO bid sacubitril-valsartan (Entresto 24 mg-26 mg oral tablet) 1 tab PO bid Allergies and Sensitivities: Zetia(Macular rash) Lipitor(pancreatitis) Past Medical History: Problems: Atrial flutter Gout Dental disorder ICD (implantable cardioverter-defibrillator) in place S/P MVR (mitral valve replacement) S/P CABG x 3 Tobacco user Mitral regurgitation Ischemic cardiomyopathy AAA (abdominal aortic aneurysm) History of cigarette smoking Weight disorder History of myocardial infarction History of pancreatitis 3-vessel CAD Abnormal echocardiogram Unifocal PVCs Familial tremor ROUTINE GENERAL MEDICAL EXAMINATION AT A [facility] Finger fracture OBJECTIVE Vitals: Last Updated 07/25/24 15:42 Date Temp BP Location Pulse RR SpO2 Pain 07/25/24 0 07/25/24 120/76 Right Arm 76 94 06/22/24 102/62 Left Arm 55 92 0 Vital Signs are the last 3 documented. Orthostatic: Last Updated 05/09/24 21:12 Date Lying 5 Min BP Lying 5 Min HR Standing 1 Min BP Standing 1 Min HR Standing 3 Min BP Standing 3 Min HR 05/09/24 54097 71 05/09/24 140/90 83 05/09/24 124/69 59 Orthostatic blood pressures are the last 3 documented. Height and Weight: Last Updated 05/09/24 10:35 Date BMI Wt(kg) Wt(lb) Method Ht(cm) (ft-in) Method 05/09/24 25.79 90.2 198 Standing Scale 187 6-1 Patient stated 05/04/24 88.1 194 Standing Scale 03/21/24 89 196 Standing Scale Heights and Weights are the last 3 documented. Physical Exam General: no acute distress, resting comfortably in bed HEENT:normocephalic,atraumatic Cardiovascular: nontachycardic Pulmonary: breathing comfortably on room air, equal chest rise bilaterally Abdomen: soft, nondistended Extremity:WWP. No lesions. Palpable femoral 2+ bilaterally Neuro: CNII-CNXII grossly intact, no focal deficits appreciated Skin: warm and well perfused, no rashes or jaundice appreciated ASSESSMENT: Mr. Rivero is an elderly male who presents to Dr. Haywood's vascular surgery clinic today for follow-up regarding his history of AAA. It has now increased in size to 5.4cm in diameter. It was 4.2cm just over one hear ago and 4.6 in February. Given the growth rate and size of the aneurysm, we discussed continued observation versus repair of his aneurysm in detail. Patient is interested in repair. Therefore we discussed the natural history of aneurysmal disease, treatment options including conservative management as well as endovascular and open repair in detail. Specifically, the risks of endovascular aortic aneurysm repair including bleeding, infection, damage to surrounding structures, need for future procedures, heart attack stroke and were discussed. The patient was offered the opportunity to ask questions. They were answered in detail to his satisfaction. He elected to proceed with EVAR. We will therefore go ahead and schedule this at a mutually acceptable time PLAN: _ 1 ) Plan for AAA repair with EVAR w/ EndoANCHORs. 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 Rodriguez prior to the procedure. He has an appointment later this month we will attempt to move up He will need to hold Eliquis 48hr prior to the procedure I saw and evaluated the patient. Discussed with the resident and agree with the resident's findings and plan as documented in the resident's note. I have personally spent__35___ minutes performing [id number] and iwn-zhob-kb-face activities on this date of service. Activities Include: __x review of the medical record __x obtaining a history _x_ physical exam/evaluation __ review labs __ review radiology reports _x_ counseling/educating patient/family/caregiver __ discussion/referral to other healthcare professional _x_ documenting care in the medical record _x_ independent interpretation of results cta at [facility] __ communication of results to patient/family/caregiver __ coordination of care Signature Line Electronic Signature on File CC: Vero Castellon PA-C [id number] [facility] [address] [facility] [id number] Electronically Reviewed/Signed by: Moe Kulkarni MD Author Signature Dt/Tm:07/25/2024 04:18 PM Resident Division of General Surgery Electronically Reviewed/Signed by: Kel Haywood MD Cosigner Signature Dt/Tm: 07/25/2024 04:20 PM Cream Separator Operator [facility] [place], [address] [place] [address] PC Result Type: HVI Outpt Note Date of Service: July 25, 2024 16:00 EDT Authorization Status: Final Author or Import Date: MD Cayla, Moe on July 25, 2024 16:18 EDT Verified By: MD Chastity, Kel Arora on July 25, 2024 16:20 EDT Encounter info: [id number], [facility], [facility], 07/25/2024 - 07/25/2024 Admission Exam Per Admitting Provider General: no acute distress, resting comfortably in bed HEENT:normocephalic,atraumatic Cardiovascular: nontachycardic Pulmonary: breathing comfortably on room air, equal chest rise bilaterally Abdomen: soft, nondistended Extremity:WWP. No lesions. Palpable femoral 2+ bilaterally Neuro: CNII-CNXII grossly intact, no focal deficits appreciated Skin: warm and well perfused, no rashes or jaundice appreciated Principal Diagnosis Abdominal aortic aneurysm Discharge Exam Constitutional WD/WN, vitals as above Respiratory normal respiratory effort; no respiratory distress Cardiovascular Rate/Rhythm: regular rate and regular rhythm Gastrointestinal (Abdomen) Inspection/Auscultation: abdomen not distended Percussion/Palpation: abdomen soft Skin + incision (puncture sites without swelling) Psychiatric A+Ox3, euthymic affect Discharge Data Allergies Allergy/AdvReac Type Severity Reaction Status Date / Time ezetimibe [From Zetia] Allergy Intermediate Rash Verified 08/08/24 09:04 atorvastatin [From Lipitor] AdvReac Unknown pancreatiti Verified 08/08/24 09:04 s Consultations 08/08/24 13:53 Consult Tinsel Machine Operator Routine Procedures Performed Operation Date: 08/08/24 10:10 Actual Procedures p Endovascular Repair of an Abdominal Aortic Aneurysm,Mechanical Closure of Bilateral Femoral Arteries(Bilateral) - Kel Haywood MD Ordered Studies 08/08/24 07:10 EV AAA repair aorta only Routine US EV guide vascular access Routine Hospital Course (1) Status post endovascular aneurysm repair: Patient without complaint. POD # 1 from a PEVAR Will d/c today Total Time Total Time Spent Total Time Spent (In Minutes): x Discharge Plan Discharge Items Patient Disposition: Home - Self-Care Reason For Visit: Abdominal Aortic Aneurysm Discharge Diagnosis: abdominal aortic aneurysm Activity: Per Instructions section Non-emergency contact: Surgeon Call non-emergency contact if: your temperature is above 101.5, your wound has increased redness, your wound has increased drainage and your wound pain has increased Follow-up/Referrals: Gm Ordaz MD [Primary Care Provider] - Diet: Heart Healthy [facility] Attending Provider Instructions: SPECIAL CARE INSTRUCTIONS: Diet: * You may return to previous diet. Medications: * Continue to take your medications as directed. Incision/Puncture Site Care: * You will have an incision or puncture in each of your groins. Liquid glue will be used to seal your incisions/puncture site. This will lift off as the incisions/puncture sites heal. * If Liquid glue is not used, there will be small dressings covering your incisions. After you get home, you may remove the dressings and shower - allowing the warm soapy water to run over it. * Be sure to dry the sites well and keep them dry. * DO NOT SOAK IN A TUB/POOL/etc. UNTIL ALL SURGICAL SITES ARE HEALED. DO NOT REMOVE THE GLUE UNTIL THE INCISIONS HEAL. Restrictions: * Limit yourself to tea blender activity for the first week. * You may walk and go up and down steps. * Avoid excessive bending or movement at the level of the incisions or punctures. Risks and Possible Complications: * Infection/Drainage/Bleeding - Drainage or bleeding from the incisions/puncture site should be minimal. If you have excessive bleeding or drainage, call our office ([phone]) right away. * Pain/Numbness - You may experience some mild pain or soreness at your incision sites. You may also have some numbness around the incisions or into the insides of your thighs. Bruising is normal and should resolve within 2 weeks. * Changes in Appetite or Bowel Habits - Mostly related to anesthesia and pain medication, some patients have reported decreased appetite and/or problems with constipation. These symptoms usually improve over a few weeks. Remembering to take an prla-hna-rerftgt stool softener, as directed, will help you to avoid constipation. Call our office and seek emergent treatment if you develop: * Fever or chills * Have a temperature greater than 101 degrees F * Any redness or purulent drainage from your incisions or punctures * Severe abdominal, chest or back pain SKIN IRRITATION: * You may experience some redness and/or swelling in the area where radiation was administered. If any skin irritation occurs, please contact your family physician. You will be receiving a call from the Vascular Surgery Nurse after you are discharged. FOLLOW UP VISIT: It is important for you to keep your follow up appointments with your medical provider. Keep any scheduled doctor appointments. Call [phone] to schedule a follow up appointment if one not already scheduled. Pending Studies at Discharge: No Stand-Alone Forms: My [facility], Smoking Cessation Medications and DC Order Prescriptions: New oxycodone-acetaminophen 5-325 mg Tablet 1 tab PO Q4H PRN (Reason: pain) Qty: 20 0RF Continued metoprolol succinate 25 mg tablet extended release 24 hr 25 mg PO QAM aspirin [Aspir-81] 81 mg Tablet,Delayed Release (Dr/Ec) 81 mg PO QAM Entresto 24-26 mg Tablet 1 tab PO BID amoxicillin 500 mg Tablet 2,000 mg PO UD PRN (Reason: dental procedures) bumetanide 1 mg Tablet 1 mg PO 3XWK colchicine 0.6 mg Capsule 0.6 mg PO UD PRN (Reason: gout flare) metoprolol succinate 50 mg Tablet Extended Release 24 Hr 50 mg PO HS allopurinol 100 mg Tablet 100 mg PO BID omega 6-uzr-xro-fish oil 900-1,400 mg Capsule,Delayed Release(Dr/Ec) 1 cap PO Q3D Eliquis 5 mg Tablet 5 mg PO BID Discharge Orders: Discharge Order (Routine); Ordered 08/09/24 Ordered By: Kel Haywood Admission Data Admit Date/Time: 08/08/24 12:23 Attending Provider: Kel Haywood Admit Provider: Kel Haywood Primary Care Provider: Gm Ordaz Other Providers: Niranjan Givens; Alex Dixon; Tacos Santos; Ho Rduolph; Erik Harmon; Altaf Xavier; Sarai Brewster
[2024-08-09 13:09] VITALS: BP 148/68; PULSE 59
== END 2024-08-09 14:43 | disposition home or self-care (01) | DRG 269 ==
LOC: ASU 08:56 → 1E 12:23

== ENCOUNTER 2024-10-28 17:06 | Observation (INO) ==
--- NOTE | 2024-10-28 17:29 | Emergency Department Note ---
Impression & Plan WILEY (acute kidney injury), Pre-syncope, Dizziness, Vertigo, Nausea & vomiting, Acute dehydration ED Provider Note NAME: ANIVAL LUCAS AGE: 69 SEX: M : 1955 ARRIVES VIA: Walk-In INFORMANT: Patient, ED PROVIDER(S): David Junior MD CHIEF COMPLAINT: Vertigo, near syncope, dizziness, nausea vomiting MEDICAL DECISION MAKING: Patient presents due to concern for lightheaded dizziness and vertiginous symptoms. Patient currently paced. IV was established and blood work was obtained. Patient was ordered IV fluids IV Zofran and p.o. meclizine. Patient with a normal white count hemoglobin of 13.8. Platelet count is unremarkable. Patient does have an elevation in creatinine which is an acute change. May be secondary to dehydration. The patient did have recent contrast for CT. Patient CT head does show some cerebral atrophy but no obvious ICH. Troponin negative. Given the patient's WILEY I did speak with the on-call hospital service and the patient was admitted to the medicine service. Discussion w/ other healthcare providers: Dr. Blair inpatient medicine service Prior /Outside records reviewed: I reviewed part of a discharge summary from August 09, [address] Haywood. Patient did have an endovascular AAA repair completed on August 08. Differential diagnosis: Benign positional vertigo, dehydration, hypovolemia, anemia, infection, hypoglycemia, electrolyte abnormalities, arrhythmia, tox among others were considered. Diagnostics, as interpreted by me: ECG:Atrial paced rhythm, prolonged VT rate of 83, no obvious STEMI. Cardiac monitoring: An order was placed for continuous cardiac monitoring. The monitor shows a rate of 85 with paced rhythm. Patient was placed on pulse oximetry Medical decision rules: None Imaging studies: I informally interpreted the patient's CT head with cerebral atrophy but no obvious ICH with formal report to follow. HPI: Patient presents due to concern for dizziness and vertigo. The patient states that he had sat down to eat something around 3:00. The patient states that he suddenly felt dizzy lightheaded vertiginous try to put his head between his legs and was unable to stand up as he felt as though he was going to pass out. The patient did have associated cold sweats nausea and dry heaves. Patient states that he does feel improved. The patient states that he did have some tenderness at the time of this occurred. No recent changes in elevation underwater activities or change in hearing. Patient denies any falls or trauma. Patient denies any chest pains. No active shortness of breath cough or fever. He did have a AAA repair completed back in July and did have a recent CT abdomen pelvis with IV contrast about a week ago and did have a follow-up with Dr. Haywood his surgeon about 2 days prior. He states that there were no acute issues. He denies any abdominal pain. PAST MEDICAL HISTORY: See Below PAST SURGICAL HISTORY: See Below SOCIAL HISTORY: See Below HOME MEDICATIONS: See Below ALLERGIES: See Below VITALS: See Below PHYSICAL EXAMINATION: GENERAL: NAD, non-toxic. Wearing glasses. EYE EXAM: Normal conjunctiva. PERRL, no anisocoria and EOM's grossly intact w/o pain. No nystagmus Ears: TMs clear bilaterally. OROPHARYNX: Moist mucus membranes, grossly normal dentition. NECK: Trachea midline, no stridor. LUNGS: Clear to auscultation. Normal chest wall mechanics. HEART: NSR, no MRG. ABDOMEN: Abdomen soft, non-tender, no masses, no rebound or guarding. BACK: No CVA TTP. SKIN: No rashes and no bruising. UPPER EXTREMITIES: Upper extremities are grossly normal. LOWER EXTREMITIES: Grossly normal, no edema. NEURO EXAM: Awake and alert, follows commands, no obvious facial asymmetry, normal speech, moves all 4 extremities. Good [id number], no drift and no sensory deficits. Past Med/Surg History Problem List Acute dehydration (Acute) Nausea & vomiting (Acute) Vertigo (Acute) Dizziness (Acute) WILEY (acute kidney injury) (Acute) Pre-syncope (Acute) Status post endovascular aneurysm repair Medical History CAD (coronary artery disease) CABG x 3 in 2021 History of cardioversion [facility] [place], 2023 Atrial fibrillation hx PVC's after heart surgery, dx with Afib approx October 2023; f/u fragin, psh ICD (implantable cardioverter-defibrillator) in place Medtronic, placed 01/2022, [facility] Gout Familial tremor Hx of myocardial infarction 2021 History of COVID-13 Dec 2023 > resolved History of kidney stones CHF (congestive heart failure) follows with Dr. Rodriguez Hyperlipidemia Aortic aneurysm 4.8, checked in Nov [address] Haywood Surgical History History of cardiac ablation for atrial fibrillation [facility], 2023 History of colonoscopy (2023) History of tooth extraction History of cystoscopy History of coronary artery bypass graft 3 vessels > 2021 at [facility] [place] History of heart valve replacement mitral > 2021 at [facility] (done w/ CABG) History of cardiac cath 2021 > no stents Family History Father Myocardial infarction Social History Smoking Status: Former smoker Tobacco Type: Cigarettes Smoking End Date: 2013; Second Hand Exposure: No; Do You Dip or Chew Tobacco: No; Hx Alcohol Use: Yes Alcohol type: beer Hx Substance Use: No Preferred Language: [place] Communication Ability: Effective Crab Steamer Required: No Beliefs That Will Affect Care: None Current Living Situation: Significant Other current occupation: Retired Other Information That Helps Us Care for You: No Feels Safe at Home: Yes Safety Concerns: Feels Safe At This Time Assistive Devices: Glasses Allergies Allergies Allergy/AdvReac Type Severity Reaction Status Date / Time ezetimibe [From Zetia] Allergy Intermediate Rash Verified 08/08/24 09:04 atorvastatin [From Lipitor] AdvReac Unknown pancreatiti Verified 08/08/24 09:04 s Home Meds Home Medications Medication Instructions Recorded Confirmed aspirin 81 mg tablet,delayed 81 mg PO QAM 11/28/18 10/04/24 release (Aspir-) metoprolol succinate 25 mg 25 mg PO QAM 11/28/18 10/04/24 tablet,extended release 24 hr sacubitril 24 mg-valsartan 26 mg 1 tab PO BID 07/28/21 10/04/24 tablet (Entresto) allopurinol 100 mg tablet 100 mg PO BID 02/03/24 10/04/24 apixaban 5 mg tablet (Eliquis) 5 mg PO BID 02/03/24 10/04/24 metoprolol succinate 50 mg 50 mg PO HS 02/03/24 10/04/24 tablet,extended release 24 hr omega 4-akv-ugt-fish oil 900 1 cap PO Q3D 02/03/24 10/04/24 mg-1,400 mg capsule,delayed release amoxicillin 500 mg tablet 2,000 mg PO UD PRN dental 07/27/24 10/04/24 procedures bumetanide 1 mg tablet 1 mg PO 3XWK 07/27/24 10/04/24 colchicine 0.6 mg capsule 0.6 mg PO UD PRN gout flare 07/27/24 10/04/24 Previous Rx's Medication Instructions Recorded oxycodone-acetaminophen 5 mg-325 1 tab PO Q4H PRN pain #20 tabs 08/09/24 mg tablet Results & Data (ED) Vital Signs Vital Signs - 24 hr 10/28/24 17:09 10/28/24 17:24 10/28/24 17:26 Temperature 36.4 C L Temperature Source Temporal Artery Scan Pulse Rate 85 52 L Pulse Rate [Right Finger] 54 L Pulse Rate from SpO2 Sensor Respiratory Rate 20 23 Respiratory Effort / Characteristics Non-Labored Non-Labored Spontaneous Respiratory Depth Normal Normal Respiratory Pattern Regular Blood Pressure 133/89 Blood Pressure [Right Arm] 144/90 H Blood Pressure Mean 103 Blood Pressure Mean [Right Arm] 108 Blood Pressure Position [Right Arm] Sitting Pulse Oximetry 97 98 Oxygen Delivery Method Room Air Room Air Sepsis Recent Fever Within 48 Hours No Sepsis New/Unexplained Change in Mental Status Yes Sepsis Action Taken by Nursing No Action Required 10/28/24 17:30 10/28/24 17:46 10/28/24 18:18 Temperature Temperature Source Pulse Rate 58 L 54 L 58 L Pulse Rate [Right Finger] Pulse Rate from SpO2 Sensor 58 L 58 L Respiratory Rate 17 18 16 Respiratory Effort / Characteristics Respiratory Depth Respiratory Pattern Blood Pressure 140/82 136/82 Blood Pressure [Right Arm] Blood Pressure Mean 101 100 Blood Pressure Mean [Right Arm] Blood Pressure Position [Right Arm] Pulse Oximetry 96 96 95 Oxygen Delivery Method Room Air Sepsis Recent Fever Within 48 Hours Sepsis New/Unexplained Change in Mental Status Sepsis Action Taken by Nursing 10/28/24 19:20 Temperature Temperature Source Pulse Rate Pulse Rate [Right Finger] 54 L Pulse Rate from SpO2 Sensor Respiratory Rate 20 Respiratory Effort / Characteristics Respiratory Depth Respiratory Pattern Blood Pressure Blood Pressure [Right Arm] 155/72 H Blood Pressure Mean Blood Pressure Mean [Right Arm] 99 Blood Pressure Position [Right Arm] Pulse Oximetry 98 Oxygen Delivery Method Room Air Sepsis Recent Fever Within 48 Hours Sepsis New/Unexplained Change in Mental Status Sepsis Action Taken by M[facility] Medications Current Medication List: was personally reviewed by me Laboratory Data Attestation: I reviewed the patient's lab results. 10/28/24 17:11 10/28/24 17:11 Lab Results 10/28/24 10/28/24 Range/Units 17:11 17:23 WBC 8.26 (4.8-10.8) K/ul RBC 4.63 L (4.70-6.10) M/uL Hgb 13.8 L (14.0-18.0) g/dl POC Hgb 14.6 (14.0-18.0) g/dl Hct 41.0 L (42.0-52.0) % POC Hct 43 (42-52) % MCV 88.6 (80.0-100.0) fL MCH 29.8 (25.0-34.0) pg MCHC 33.7 (32.0-36.0) g/dL RDW Std Deviation 46.8 H (36.4-46.3) fL RDW Coeff of Celine 14.7 H (11.5-14.5) % Plt Count 183 (130-400) K/uL MPV 10.2 (9.4-12.4) fL Immature Gran % (Auto) 0.6 % Neut % (Auto) 83.2 % Lymph % (Auto) 9.0 % [place] % (Auto) 4.7 % Eos % (Auto) 1.9 % Baso % (Auto) 0.6 % Neut # (Auto) 6.87 H (1.40-6.50) K/uL Lymph # (Auto) 0.74 L (1.20-3.40) K/uL [place] # (Auto) 0.39 (0.11-0.59) K/uL Eos # (Auto) 0.16 (0.00-0.50) K/uL Baso # (Auto) 0.05 (0.00-0.20) K/uL Immature Gran # (Auto) 0.05 (0.01-0.20) K/uL PT 11.0 (9.0-12.0) Seconds INR 1.0 (0.9-1.1) APTT 32 H (21-31) Seconds PTT Ratio 1.2 POC Sodium 137 (135-144) mmol/L Sodium 137 (136-145) mmol/L POC Potassium 4.7 (3.3-5.0) mmol/L Potassium 4.5 (3.5-5.1) mmol/L POC Chloride 105 (101-112) mmol/L Chloride 103 (98-107) mmol/L Carbon Dioxide 25 (21-32) mmol/L POC Total CO2 23 L (24-31) mmol/L Anion Gap 9 (3-11) POC Anion Gap 15.0 L (16-25) mmol/L POC BUN 29 H (7-18) mg/dl BUN 31 H (6-23) mg/dl Creatinine 2.12 H (0.6-1.4) mg/dl POC Creatinine 2.2 H (0.6-1.3) mg/dl Est Cr Clr Drug Dosing 37.2 ml/min eGFR 32.66 BUN/Creatinine Ratio 14.6 (10-20) Glucose 104 H (70-99(Fasting)) mg/dl POC Glucose (other) 108 H (70-99) mg/dl Calcium 9.4 (8.6-10.3) mg/dl POC Ioniz Calcium Kane 1.24 (1.12-1.32) mmol/l Total Bilirubin 0.6 (0.2-1.0) mg/dl AST 18 (13-39) U/L ALT 14 (7-52) U/L Alkaline Phosphatase 90 (34-104) U/L Troponin I High Sens 11.2 (0-20) pg/ml Total Protein 7.9 (6.0-8.3) gm/dl Albumin 4.3 (3.4-5.0) gm/dl Globulin 3.6 (2.5-4.0) gm/dl Albumin/Globulin Ratio 1.2 (0.9-2) Administered Medications Allopurinol (Allopurinol 100 Mg Tab) 100 mg PO BID MARCELLE Stop: 11/27/24 22:40 Last Admin: 10/28/24 23:11 Dose: 100 mg Documented By: KENYA Apixaban (Apixaban 5 Mg Tablet) 5 mg PO BID MARCELLE Stop: 11/27/24 22:40 Last Admin: 10/28/24 23:11 Dose: 5 mg Documented By: KENYA Metoprolol Succinate (Metoprolol Succ 50mg Ext Rel Tab) 50 mg PO HS MARCELLE Stop: 11/27/24 22:40 Last Admin: 10/28/24 23:11 Dose: 50 mg Documented By: KENYA Discontinued Medications Sodium Chloride (Nss) 1,000 mls @ 999 mls/hr IV .Q1H1M ONE Stop: 10/28/24 18:44 Last Infusion: 10/28/24 19:10 Dose: Infused Documented By: Admin: 10/28/24 17:53 Dose: 999 mls/hr Documented By: DANNY Meclizine HCl (Meclizine Hcl 25 Mg Tab) 25 mg PO NOW STA Stop: 10/28/24 17:45 Last Admin: 10/28/24 17:53 Dose: 25 mg Documented By: DANNY Ondansetron HCl (Ondansetron Inj 2 Mg/Ml 2 Ml Vial) 4 mg IV NOW STA Stop: 10/28/24 17:45 Last Admin: 10/28/24 17:53 Dose: 4 mg Documented By: DANNY Imaging Data Radiologist's Impression: Head CT 10/28/24 17:44 CT head without contrast History: Vertigo Comparison: None Technique: Using multidetector thin collimation helical acquisition technique, axial, coronal and sagittal CT images from the skull base to the vertex were obtained without intravenous contrast. Dose reduction techniques were achieved by using automatic exposure control and/or adjustment of mA and/or kV according to patient size and/or use of iterative reconstruction technique. Findings: No intracranial hemorrhage, mass-effect, or midline shift. The ventricles are proportionate to the cerebral sulci. The neumann to white matter differentiation of the cerebral hemispheres is preserved. The basal cisterns are patent. The visualized paranasal sinuses are clear. Mastoid air cells are clear. Impression: No acute intracranial pathology. Electronically signed by Jayden Centeno 10-28-2024 7:37 PM Discharge Plan Visit Data Chief Complaint: TIA Symptoms Stated Complaint: TIA SYMPTOMS ED Provider: David Junior Discharge Problem: WILEY (acute kidney injury), Pre-syncope, Dizziness, Vertigo, Nausea & vomiting, Acute dehydration Patient Disposition: Admitted As Inpatient Condition: Good Discharge Instructions Interventions: ED Discharge Assessment Last Done: 10/28/24 21:46 Discharge Problem: Nausea & vomiting Qualifiers: Vomiting type: unspecified Qualified Code(s): R11.2 - Nausea with vomiting, unspecified
[2024-10-28] MEDS: SODIUM CHLORIDE 0.9% 1,000 ML IV ONE (17:53)
[2024-10-28] MEDS: ONDANSETRON INJ 2 MG/ML 2 ML VIAL IV STA (17:53)
[2024-10-28] MEDS: MECLIZINE HCL 25 MG TAB PO STA (17:53)
[2024-10-28 18:06] LABS: Hematocrit (blood only) 41.0 % (42.0-52.0); Hemoglobin 13.8 g/dl (14.0-18.0); Immature Granulocytes # (auto) 0.05 K/uL (0.01-0.20); Immature Granulocytes % (auto) 0.6 %; Mean Corpuscular Hemoglobin 29.8 pg (25.0-34.0); Mean Corpuscular Volume 88.6 fL (80.0-100.0); Platelet Count 183 K/uL (130-400); RDW Standard Deviation 46.8 fL (36.4-46.3); Red Blood Count 4.63 M/uL (4.70-6.10); White Blood Count 8.26 K/ul (4.8-10.8)
[2024-10-28 18:25] LABS: Alanine Aminotransferase 14.0 U/L (7-52); Albumin Globulin Ratio 1.2 (0.9-2); Alkaline Phosphatase 90.0 U/L (34-104); Anion Gap 9.0 (3-11); Bilirubin,Total 0.6 mg/dl (0.2-1.0); Blood Urea Nitrogen 31.0 mg/dl (6-23); Calcium 9.4 mg/dl (8.6-10.3); Carbon Dioxide 25.0 mmol/L (21-32); Chloride 103.0 mmol/L (98-107); Creatinine Clr Calc Pharmacy 37.2 ml/min; Globulin 3.6 gm/dl (2.5-4.0); Glucose 104.0 mg/dl (70-99(Fasting)); Potassium 4.5 mmol/L (3.5-5.1); Sodium 137.0 mmol/L (136-145); Total Protein 7.9 gm/dl (6.0-8.3)
[2024-10-28 18:35] LABS: INR 1.0 (0.9-1.1); Partial Thromboplastin Time 32 Seconds (21-31); Prothrombin Time 11.0 Seconds (9.0-12.0)
--- NOTE | 2024-10-28 19:27 | History & Physical Report ---
Date of Service October 28, 2024 Assessment & Plan (1) Pre-syncope: Plan: 1-year-old male with a history of HFrEF, recent AAA repair who presents with lightheadedness dizziness and near syncope which improved over approximately 1 hour. He has an WILEY on ER evaluation Presyncope, dizziness No focal deficits, symptoms resolved over an hour. Endorses room spinning when he tried to stand.Suspect presyncopal/orthostatic. Less likely ddx includes peripheral vertigo, cardiogenic, Neurologic. CTA was deferred on admission due to WILEY. Symptoms have resolved at bedside. Will obtain MRI to R/O basilar cva. Pacemaker interrogation pending No chest pain or chest pressure. EKG is without ischemic changes. Blood pressures normal/slightly high on admission - CT-H naf WILEY Baseline creatinine approximately 1.71.8 Admitting creatinine 2.12, prerenal azotemia versus borderline mild WILEY With nausea/vomiting and poor p.o. intake. Suspect prerenal Fluids, BMP trended Abdominal pain Patient is very tender to palpation in the left lower quadrant. He reports that this is not normal for him, although did not notice that he was tender prior to coming to the ER. Abdomen is nonrigid on exam. Does have a history of kidney stones, no hematuria or dysuria or flank pain in the last week w/ concurrent WILEY. CT-A/P pending. - CTAA/P reviewed. Stable size of abdominal aortic aneurysm post placement of aortobiiliac stent graft widely patent. No endoleak. Unchanged high-grade stenosis of the renal arteries. Potential noxious fume exposure Patient had been burning plastic prior to his presyncopal symptoms No wheezing, no shortness of breath, no dyspnea, no hypoxia Monitor clinically HFpEF, CAD s/p CABG x 3, ICD, atrial flutter on Eliquis History of severely reduced LVEF with last interval improvement from 20% to 40%. 02/2024 Troponin normal Admitting EKG: Atrial paced. No territorial ST/T wave changes. QTc 491. Antihypertensives until CVA ruled out on MRI. If negative, resume metoprolol. Resume Entresto when renal function improved/stable Bumex held for volume contraction AAA s/p endovascular repair Noted Imaging as noted DVT prophylaxis: Anticoagulated Disposition: M/T for presyncope and cardiac monitoring CODE STATUS: Full code Diet: Heart healthy (2) CAD (coronary artery disease): (3) Atrial fibrillation: (4) ICD (implantable cardioverter-defibrillator) in place: (5) Hyperlipidemia: History of Present Illness Primary Care Provider: Gm Ordaz MD Timbo "Rickey Rivero presents with near syncope and dizziness. Dry heaving 3pm today. Has an WILEY on admit. Reports episode of dizziness, spinning/vertigo, tinnitis and vomiting. Had body seen at the bedside with family present. He reports shortly after lunch he was sitting down when he had a wave of severe lightheadedness/dizziness and a feeling like he was going to blackout. He put his head between his legs and this helped a little bit but when he would try to bring his head up or stand rapidly had severe lightheadedness and spinning and had to fight to stay conscious and put his head back between his legs. He gradually felt better over the course of approximately an hour with a few smaller spells but nothing as severe as the initial. During the episode he had sweating and felt unwell, did not have any chest pain. He reports he was trying not to hyperventilate but did not feel particularly short of breath. He did not notice any focal weakness. No difficulty speaking. No dysarthria. was with him did not notice any facial droop Before this he had been working in the yard and was burning trash/plastic, although did not have any coughing or irritation and notes that he was not burning very much and there was not black smoke that he noticed. He feels mostly back to normal, but does have some unusual left lower quadrant abdominal pain today which is atypical for him. He reports he does have history of kidney stones. He denies dysuria/hematuria in the last few days. No cough. No fevers. Medical History: Reviewed Medications: Reviewed Surgical History: Reviewed Family history: Reviewed Allergies: Reviewed Social History: No tobacco use. Rare social ETOH use, denies recent use Code Status: Full Allergies Allergy/AdvReac Type Severity Reaction Status Date / Time ezetimibe [From Zetia] Allergy Intermediate Rash Verified 08/08/24 09:04 atorvastatin [From Lipitor] AdvReac Unknown pancreatiti Verified 08/08/24 09:04 s Home Medications Medication Instructions Recorded Confirmed Type aspirin 81 mg tablet,delayed 81 mg PO QAM 11/28/18 10/04/24 History release (Aspir-) metoprolol succinate 25 mg 25 mg PO QAM 11/28/18 10/04/24 History tablet,extended release 24 hr sacubitril 24 mg-valsartan 26 mg 1 tab PO BID 07/28/21 10/04/24 History tablet (Entresto) allopurinol 100 mg tablet 100 mg PO BID 02/03/24 10/04/24 History apixaban 5 mg tablet (Eliquis) 5 mg PO BID 02/03/24 10/04/24 History metoprolol succinate 50 mg 50 mg PO HS 02/03/24 10/04/24 History tablet,extended release 24 hr omega 2-vjl-hge-fish oil 900 1 cap PO Q3D 02/03/24 10/04/24 History mg-1,400 mg capsule,delayed release amoxicillin 500 mg tablet 2,000 mg PO UD PRN dental 07/27/24 10/04/24 History procedures bumetanide 1 mg tablet 1 mg PO 3XWK 07/27/24 10/04/24 History colchicine 0.6 mg capsule 0.6 mg PO UD PRN gout flare 07/27/24 10/04/24 History oxycodone-acetaminophen 5 mg-325 1 tab PO Q4H PRN pain #20 tabs 08/09/24 10/04/24 Rx mg tablet Past Med/Surg History Problem List Pre-syncope Status post endovascular aneurysm repair Medical History CAD (coronary artery disease) CABG x 3 in 2021 History of cardioversion [facility] [place], 2023 Atrial fibrillation hx PVC's after heart surgery, dx with Afib approx October 2023; f/u ricardo, ps ICD (implantable cardioverter-defibrillator) in place Medtronic, placed 01/2022, [facility] Gout Familial tremor Hx of myocardial infarction 2021 History of COVID-13 Dec 2023 > resolved History of kidney stones CHF (congestive heart failure) follows with Dr. Rodriguez Hyperlipidemia Aortic aneurysm 4.8, checked in Nov [address] Haywood Surgical History History of cardiac ablation for atrial fibrillation [facility], 2023 History of colonoscopy (2023) History of tooth extraction History of cystoscopy History of coronary artery bypass graft 3 vessels > 2021 at [facility] History of heart valve replacement mitral > 2021 at [facility] (done w/ CABG) History of cardiac cath 2021 > no stents Family History Father Myocardial infarction Social History Smoking Status: Never smoker Second Hand Exposure: No; Do You Dip or Chew Tobacco: No; Hx Alcohol Use: Yes Hx Substance Use: No Preferred Language: Indonesian Communication Ability: Effective Yard Inspector Required: No Beliefs That Will Affect Care: None Current Living Situation: Significant Other current occupation: Retired Feels Safe at Home: Yes Assistive Devices: Walker Physical Exam Physical Exam: General: A&Ox3. NAD. Cooperative. HEENT: Atraumatic, normocephalic. Vision and hearing grossly intact. Pupils equal reactive to light Pulm: CTAB A&P. -wheezes, -rales, -rhonchi. Symmetrical chest rise. No increased work of breathing. No respiratory distress. Cardiac: RRR, -mrg. Radial pulses intact and symmetrical. Abdominal: Prominently tender in the left upper quadrant, no rebound/guarding. No rigidity. Extremities: Commercial Announcer strength, elbow flexion/extension, shoulder flexion, ankle dorsiflexion/plantarflexion 5/5 without deficit or asymmetry. Sensation intact to soft touch in hands and feet without deficit or asymmetry. Radial pulse and PT pulse are intact bilaterally Results & Data Results & Data Vital Signs (Past 12 Hours) Vital Signs Temp Pulse Pulse Resp BP BP Pulse Ox 10/28/24 18:18 58 L 16 136/82 95 10/28/24 17:46 54 L 18 96 10/28/24 17:30 58 L 17 140/82 96 10/28/24 17:26 52 L 10/28/24 17:24 54 L 23 144/90 H 98 10/28/24 17:09 36.4 C L 85 20 133/89 97 O2 Del Method 10/28/24 18:18 10/28/24 17:46 Room Air 10/28/24 17:30 10/28/24 17:26 10/28/24 17:24 Room Air 10/28/24 17:09 Room Air PG Care Time/CCT Total # of Minutes Spent Total Time Spent with Patient: Total time spent is greater than 50% in coordination of care (as documented) at patient's floor/unit and/or counseling patient: Coding Level of Care Code 14419 INT INP/OBS CARE 3/75MIN Diagnoses Pre-syncope R55 CAD (coronary artery disease) I25.10 Atrial fibrillation I48.91 ICD (implantable cardioverter-defibrillator) in place Z95.810 Hyperlipidemia E78.5
--- NOTE | 2024-10-28 19:38 | CT Scan Report ---
CT head without contrast History: Vertigo Comparison: None Technique: Using multidetector thin collimation helical acquisition technique, axial, coronal and sagittal CT images from the skull base to the vertex were obtained without intravenous contrast. Dose reduction techniques were achieved by using automatic exposure control and/or adjustment of mA and/or kV according to patient size and/or use of iterative reconstruction technique. Findings: No intracranial hemorrhage, mass-effect, or midline shift. The ventricles are proportionate to the cerebral sulci. The neumann to white matter differentiation of the cerebral hemispheres is preserved. The basal cisterns are patent. The visualized paranasal sinuses are clear. Mastoid air cells are clear. Impression: No acute intracranial pathology. Electronically signed by Jayden Centeno 10-28-2024 7:37 PM
[2024-10-28] MEDS ORDERED: ACETAMINOPHEN 325 MG TAB PO PRN (22:41)
[2024-10-28] MEDS ORDERED: ONDANSETRON INJ 2 MG/ML 2 ML VIAL IV PRN (22:41)
[2024-10-28] MEDS: METOPROLOL SUCC 50MG EXT REL TAB PO SCH (23:11)
[2024-10-28] MEDS: APIXABAN 5 MG TABLET PO SCH (23:11)
--- NOTE | 2024-10-28 23:25 | CT Scan Report ---
Exam(s): CT ABDOMEN + PELVIS Without Contrast EXAM: CT Abdomen and Pelvis Without Intravenous Contrast CLINICAL HISTORY: Reason for exam: WILEY, LUQ abdominal pain. TECHNIQUE: Axial computed tomography images of the abdomen and pelvis without intravenous contrast. CTDI is 23.95 mGy and DLP is 1152.38 mGy-cm. Automated exposure control was utilized for the study. A dose lowering technique was utilized adhering to the principles of ALARA. COMPARISON: 10/04/2024 FINDINGS: Lung bases: Unremarkable. No mass. No consolidation. ABDOMEN: Liver: The liver is mildly enlarged measuring 18.6 cm craniocaudad. No focal liver lesion is seen. Gallbladder and bile ducts: Unremarkable. No calcified stones. No ductal dilation. Pancreas: Unremarkable. No ductal dilation. Spleen: Unremarkable. No splenomegaly. Adrenals: Unremarkable. No mass. Kidneys and ureters: Mild diffuse right renal atrophy. There is slight fat stranding around both kidneys which is nonspecific and can be seen in renal insufficiency. No hydronephrosis or ureterolithiasis is seen. There are multiple simple cysts in both kidneys measuring up to 3 cm. No follow-up is required. Stomach and bowel: Unremarkable. No obstruction. No mucosal thickening. PELVIS: Appendix: No findings to suggest acute appendicitis. Bladder: Unremarkable. No stones. Reproductive: Unremarkable as visualized. ABDOMEN and PELVIS: Intraperitoneal space: Bowel loops are nondilated. No pneumoperitoneum, free fluid, or acute inflammatory changes are seen involving the bowel. Bones/joints: Mild degenerative changes in the spine. No acute fracture or subluxation. Soft tissues: Unremarkable. Vasculature: Previous stent graft repair of infrarenal abdominal aortic aneurysm. The aneurysm sac measures 5.4 cm in diameter without signs of rupture. This is similar to previous. This is a noncontrast study. Lymph nodes: Unremarkable. No enlarged lymph nodes. IMPRESSION: 1. Previous stent graft repair of infrarenal abdominal aortic aneurysm. The aneurysm sac measures 5.4 cm in diameter without signs of rupture. This is similar to previous. This is a noncontrast study. 2. Mild diffuse right renal atrophy. There is slight fat stranding around both kidneys which is nonspecific and can be seen in renal insufficiency. No hydronephrosis or ureterolithiasis is seen. 3. Bowel loops are nondilated. No pneumoperitoneum, free fluid, or acute inflammatory changes are seen involving the bowel. Electronically signed by: Freddie Otero MD 10/28/24 23:24 PM
--- NOTE | 2024-10-29 02:12 | Ultrasound Report ---
EXAM: US carotid doppler BI CLINICAL HISTORY: dizziness near syncope, cerebrovascular accident. TECHNIQUE: Ultrasound examination of the carotid arteries was performed in real-time and duplex. One or more of the following were performed- spectral analysis, resistive index, waveform analysis, and pulsed Doppler. COMPARISON: None. FINDINGS: Doppler Profile: Vessel Right (PSV/EDV cm/sec) Left (PSV/EDV cm/sec) Common Carotid Artery (CCA) -80/14 -117/24 Bulb - - Internal Carotid Artery (ICA) - prox -131/28 -69/20 Internal Carotid Artery (ICA) - Distal -70/11 -102/24 External Carotid Artery (ECA) -222/16 -144/8.5 Vertebral Artery (VA) -53/15 -51/12 Right ICA/CCA Ratio Systolic 1.8 Diastolic 2.3 Left ICA/CCA Ratio systolic 1.4 Diastolic 1.3 Plaque Characterization and Stenosis evaluation Diffuse atherosclerotic changes of the carotid system in the form of intimal thickening with multiple calcified atheromatous plaques. No hemodynamically significant stenosis seen Vertebral Arteries: Normal flow noted in the vertebral arteries bilaterally. No evidence of vertebral artery stenosis or subclavian steal phenomenon. IMPRESSION: 1. Diffuse atherosclerotic changes of the carotid system 2. No hemodynamically significant stenosis is seen 3. Routine follow-up or additional imaging may be recommended based on clinical presentation. NASCET Criteria for carotid stenosis: Degree of Stenosis Measurement Criteria (Angiography) Peak Systolic Velocity (PSV) End Diastolic Velocity (EDV) PSV Ratio ICA/CCA Clinical Indications for Surgery Normal No narrowing 125 cm/s 40 cm/s 2.0 Not indicated for surgery Mild Stenosis 50% narrowing of the carotid artery 125 cm/s 40 cm/s 2.0 Generally, not indicated for surgery Moderate Stenosis 50% to 69% narrowing of the carotid artery 125 - 230 cm/s 40 - 100 cm/s 2.0 - 4.0 May be considered for surgery based on individual factors Severe Stenosis 70% to 99% narrowing of the carotid artery 230 cm/s 100 cm/s 4.0 Recommended for surgery in symptomatic patients Total Occlusion 100% blockage of the carotid artery No flow detected No flow detected Not applicable Surgery is not typically performed due to complete blockage Electronically signed by Vish Pizarro 10-29-2024 02:12 AM
[2024-10-29 06:13] LABS: Hematocrit (blood only) 36.5 % (42.0-52.0); Hemoglobin 12.3 g/dl (14.0-18.0); Immature Granulocytes # (auto) 0.02 K/uL (0.01-0.20); Immature Granulocytes % (auto) 0.3 %; Mean Corpuscular Hemoglobin 30.1 pg (25.0-34.0); Mean Corpuscular Volume 89.5 fL (80.0-100.0); Platelet Count 176 K/uL (130-400); RDW Standard Deviation 48.0 fL (36.4-46.3); Red Blood Count 4.08 M/uL (4.70-6.10); White Blood Count 5.81 K/ul (4.8-10.8)
[2024-10-29 06:32] LABS: Anion Gap 6.0 (3-11); Blood Urea Nitrogen 35.0 mg/dl (6-23); Calcium 8.7 mg/dl (8.6-10.3); Carbon Dioxide 26.0 mmol/L (21-32); Chloride 106.0 mmol/L (98-107); Creatinine Clr Calc Pharmacy 35.0 ml/min; Glucose 90.0 mg/dl (70-99(Fasting)); Potassium 4.6 mmol/L (3.5-5.1); Sodium 138.0 mmol/L (136-145)
--- NOTE | 2024-10-29 07:40 | Hospitalist Progress Note ---
Date of Service October 29, 2024 Assessment & Plan Admission and Anticipated Discharge Date Admission Date: October 28, 2024 Results & Data Results & Data Vital Signs (Past 12 Hours) Vital Signs Temp Pulse Pulse Resp BP BP Pulse Ox 10/29/24 07:35 36.5 C 50 L 20 120/73 93 10/29/24 04:19 36.8 C 67 16 106/61 93 10/29/24 00:32 78 10/28/24 22:23 36.6 C 76 20 140/87 96 10/28/24 21:30 54 L 16 127/68 95 10/28/24 21:22 53 L 10/28/24 20:30 86 16 127/78 98 O2 Del Method 10/29/24 07:35 Room Air 10/29/24 04:19 Room Air 10/29/24 00:32 10/28/24 22:23 Room Air 10/28/24 21:30 Room Air 10/28/24 21:22 10/28/24 20:30 Room Air Resident Activity Tracking Resident Involvement: Resident Care Provided Care Provided: Adult Hospital Medicine
[2024-10-29] MEDS: ASPIRIN 81 MG ECTAB PO SCH (09:10)
[2024-10-29] MEDS: METOPROLOL SUCC 25MG EXT REL TAB PO SCH (09:10)
[2024-10-29 11:34] VITALS: RESP 18
--- NOTE | 2024-10-29 12:21 | Electrocardiogram Report ---
Test Reason : Blood Pressure : */* mmHG Vent. Rate : 83 BPM Atrial Rate : 83 BPM P-R Int : 250 ms QRS Dur : 108 ms QT Int : 418 ms P-R-T Axes : 0 165 -27 degrees QTcB Int : 491 ms Atrial-paced rhythm with prolonged AV conduction Inferior-posterior infarct (cited on or before 27-Jul-2024) Abnormal ECG When compared with ECG of 27-Jul-2024 13:39, Right bundle branch block is no longer Present Confirmed by Solomon Mason ([id number]) on 10/29/2024 12:20:40 PM Referred By: REFERRED SELF Confirmed By: Solomon Mason
[2024-10-29 15:40] VITALS: BP 119/73; TEMP 98.2; O2SAT 95
--- NOTE | 2024-10-29 16:10 | Discharge Summary ---
Date of Service October 29, 2024 Admission HPI Per Admitting Provider Timbo Rivero (Bob ) presents with near syncope and dizziness. Dry heaving 3pm today. Has an WILEY on admit. Reports episode of dizziness, spinning/vertigo, tinnitis and vomiting. Had body seen at the bedside with family present. He reports shortly after lunch he was sitting down when he had a wave of severe lightheadedness/dizziness and a feeling like he was going to blackout. He put his head between his legs and this helped a little bit but when he would try to bring his head up or stand rapidly had severe lightheadedness and spinning and had to fight to stay conscious and put his head back between his legs. He gradually felt better over the course of approximately an hour with a few smaller spells but nothing as severe as the initial. During the episode he had sweating and felt unwell, did not have any chest pain. He reports he was trying not to hyperventilate but did not feel particularly short of breath. He did not notice any focal weakness. No difficulty speaking. No dysarthria. was with him did not notice any facial droop Before this he had been working in the yard and was burning trash/plastic, although did not have any coughing or irritation and notes that he was not burning very much and there was not black smoke that he noticed. He feels mostly back to normal, but does have some unusual left lower quadrant abdominal pain today which is atypical for him. He reports he does have history of kidney stones. He denies dysuria/hematuria in the last few days. No cough. No fevers. Medical History: Reviewed Medications: Reviewed Surgical History: Reviewed Family history: Reviewed Allergies: Reviewed Social History: No tobacco use. Rare social ETOH use, denies recent use Code Status: Full Admission Exam Per Admitting Provider General: A&Ox3. NAD. Cooperative. HEENT: Atraumatic, normocephalic. Vision and hearing grossly intact. Pupils equal reactive to light Pulm: CTAB A&P. -wheezes, -rales, -rhonchi. Symmetrical chest rise. No increased work of breathing. No respiratory distress. Cardiac: RRR, -mrg. Radial pulses intact and symmetrical. Abdominal: Prominently tender in the left upper quadrant, no rebound/guarding. No rigidity. Extremities: Client Service Consultant strength, elbow flexion/extension, shoulder flexion, ankle dorsiflexion/plantarflexion 5/5 without deficit or asymmetry. Sensation intact to soft touch in hands and feet without deficit or asymmetry. Radial pulse and PT pulse are intact bilaterally Principal Diagnosis Presyncope Discharge Exam Constitutional: well-appearing, no acute distress HEENT: NCAT, no conjunctival injection CV: extremities well-perfused, no LE edema Resp: no increased work of breathing GI: nondistended MSK: no gross deformities appreciated Skin: warm, dry, no rash appreciated Neuro: alert, oriented, no focal neurologic deficit appreciated Discharge Data Allergies Allergy/AdvReac Type Severity Reaction Status Date / Time ezetimibe [From Zetia] Allergy Intermediate Rash Verified 08/08/24 09:04 atorvastatin [From Lipitor] AdvReac Unknown pancreatiti Verified 08/08/24 09:04 s Consultations 10/28/24 18:43 ED Decision to Admit Stat Ordered Studies 10/28/24 17:44 CT head/brain wo con Stat 10/28/24 20:03 CT Abd and Pelvis [CT abd pelvis wo con] Stat 10/28/24 22:41 US carotid doppler BI Routine 10/30/24 10:05 MR angio head wo con Routine MR brain wo con Routine 10/30/24 22:41 MR angio head wo con Routine MR brain wo con Routine Hospital Course (1) Pre-syncope: (2) Status post endovascular aneurysm repair: (3) WILEY (acute kidney injury): (4) Dizziness: (5) Atrial fibrillation: (6) CAD (coronary artery disease): Plan 1-year-old male with a history of HFrEF, recent AAA repair who presents with lightheadedness dizziness and near syncope which improved over approximately 1 hour. He has an WILEY on ER evaluation # Presyncope, dizziness No focal deficits, symptoms resolved over an hour. Endorses room spinning when he tried to stand.Suspect presyncopal/orthostatic. Less likely ddx includes peripheral vertigo, cardiogenic, Neurologic. CTA was deferred on admission due to WILEY. Symptoms have resolved at bedside. Defer MRI Brain at this time, if recurrent symptoms can consider MRI/A to evaluate for cerebellar ischemia as an outpatient Pacemaker interrogation No chest pain or chest pressure. EKG is without ischemic changes. Blood pressures normal/slightly high on admission - CT-H no acute findings, CTA deferred due to WILEY Defer MRI Brain at this time, if recurrent symptoms can consider MRI/A to evaluate for cerebellar ischemia as an outpatient Continued to improve without symptoms on day of discharge Orthostatic vital signs negative #WILEY Baseline creatinine approximately 1.71.8 Admitting creatinine 2.12, prerenal azotemia versus borderline mild WILEY With nausea/vomiting and poor p.o. intake. Suspect prerenal Fluids, BMP trended #Abdominal pain Patient is very tender to palpation in the left lower quadrant. He reports that this is not normal for him, although did not notice that he was tender prior to coming to the ER. Abdomen is nonrigid on exam. Does have a history of kidney stones, no hematuria or dysuria or flank pain in the last week w/ concurrent WILEY. - CTAA/P reviewed. Stable size of abdominal aortic aneurysm post placement of aortobiiliac stent graft widely patent. No endoleak. Unchanged high-grade stenosis of the renal arteries. #Potential noxious fume exposure Patient had been burning plastic prior to his presyncopal symptoms No wheezing, no shortness of breath, no dyspnea, no hypoxia Monitor clinically #HFpEF, CAD s/p CABG x 3, ICD, atrial flutter on Eliquis History of severely reduced LVEF with last interval improvement from 20% to 40%. 02/2024 Troponin normal Admitting EKG: Atrial paced. No territorial ST/T wave changes. QTc 491. Antihypertensives until CVA ruled out on MRI. If negative, resume metoprolol. Resume Entresto when renal function improved/stable Bumex held for volume contraction #AAA s/p endovascular repair Noted Imaging as noted Total Time Total Time Spent Total Time Spent (In Minutes): <30 Discharge Plan Discharge Items Patient Disposition: Home - Self-Care Reason For Visit: PRESYNCOPE, WILEY Discharge Diagnosis: Presyncope, WILEY Condition on Discharge: Good Activity: Resume your previous activity Activity Comment: as tolerated Non-emergency contact: Primary Care Provider Call non-emergency contact if: you have any medication questions and your symptoms worsen Follow-up/Referrals: Gm Ordaz MD [Primary Care Provider] - (Pt aware and will call tomorrow to schedule his follow up) Diet: Heart Healthy Addtl Attending Provider Instructions: You were admitted to the hospital for dizziness/lightheadedness. CT of your head was performed that did not demonstrate any acute pathology. Your labs revealed kidney function to suggest that you were dehydrated. As you were without symptoms throughout the day it is thought that you do not need any further testing in the hospital at this time. Be sure to stay well hydrated with a goal of 60-80 oz of fluid throughout any given day. You may resume your usual medications at discharge. The [facility] office should reach out to you to schedule an appointment later this week or early next week. At that time we will re-test your kidney function to ensure that your numbers have improved. A discharge summary will be sent to your primary care physician to ensure continuity of care. Please bring this discharge summary with you to your next office appointment so that your provider can review it at that time. Follow-up appointments: We have requested a follow-up appointment with your primary care physician within one week of discharge. Please call their office ([facility] phone number ) if you do not hear from them. Keep all your follow-up appointments as already scheduled. If you cannot make an appointment, notify your provider. Medications: Your medication list has been reviewed and reconciled upon discharge to ensure accuracy and continuity of care. An updated list of all your medications is included with your hospital Take your medications as instructed; do not skip a dose of your medicines. Make sure all of your doctors know every medicine you are taking (including [id number]-[id number]-[id number] medicines, vitamins, and supplements). Call your primary care provider before taking any new medicines (including vayq-wmi-kiitdmp medicines, vitamins, and supplements), because some of these may interact with your current medications, or may make your symptoms worse. Tell your primary care provider if you cannot afford your medications. CONTACT YOUR PRIMARY CARE PROVIDER if you experience any of the following: Recurrent dizziness/lightheadedness Difficulty following your treatment plan, or difficulty taking medications CALL 911 OR GO TO THE EMERGENCY DEPARTMENT if you experience any of the following: Sudden, severe abdominal pain or nausea/vomiting Severe chest pain, or chest pain that radiates (moves) to your jaw or arm Sudden, severe shortness of breath or difficulty breathing Thank you for allowing us to participate in your care. Pending Studies at Discharge: No Stand-Alone Forms: My [facility] Medications and DC Order Prescriptions: Continued metoprolol succinate 25 mg tablet extended release 24 hr 25 mg PO QAM aspirin [Aspir-81] 81 mg Tablet,Delayed Release (Dr/Ec) 81 mg PO QAM Entresto 24-26 mg Tablet 1 tab PO BID amoxicillin 500 mg Tablet 2,000 mg PO UD PRN (Reason: dental procedures) bumetanide 1 mg Tablet 1 mg PO 3XWK colchicine 0.6 mg Capsule 0.6 mg PO UD PRN (Reason: gout flare) oxycodone-acetaminophen 5-325 mg Tablet 1 tab PO Q4H PRN (Reason: pain) Qty: 20 0RF metoprolol succinate 50 mg Tablet Extended Release 24 Hr 50 mg PO HS allopurinol 100 mg Tablet 100 mg PO BID omega 1-dzt-zaf-fish oil 900-1,400 mg Capsule,Delayed Release(Dr/Ec) 1 cap PO Q3D Eliquis 5 mg Tablet 5 mg PO BID Discharge Orders: Discharge Order (Routine); Ordered 10/29/24 Ordered By: Vicente Good Admission Data Admit Date/Time: 10/28/24 20:03 Attending Provider: Corby Joseph Admit Provider: Alfonso Blair Primary Care Provider: Gm Ordaz Other Providers: Alfonso Blair Other Interventions: Discharge Summary Assessment (RN) Last Done: 10/29/24 17:16 Supervising Physician Co-Signing Physician Notes I personally examined the patient and verified all maxwell points of history and exam, discussed case, and agree with decision making with Dr Good Feeling better, feeling basically back to his normal, and would like to go home. Vitals noted, in general he is awake and alert pleasant no distress. HEENT normocephalic atraumatic mucous membranes moist. Breathing unlabored no accessory muscle use good effort. Skin without rashes pallor or icterus. Neuro without focal deficits. Dizziness/near syncopegiven his WILEY, as well as the fact that it has been quite hot out and he was working outside, I strongly suspect hypovolemia/dehydration as the culprit. He is feeling better and would like to go home, and this seems reasonable. The admitting physician understandably (given that the patient has vascular disease elsewhere) did entertain the thought of cerebellar ischemia and an MRI was orderedbut because of the patient's pacemaker this would not be able to be done until tomorrow. Given that the whole situation seems to fit far more closely with hypovolemia that has now been corrected, and given that the patient has strong desire to go home, we discussed that it would be reasonable to have him go home, and then pursue more of a cerebellar workup should he have recurrent dizzy spells. He felt this was reasonable as well. Close outpatient follow-up was facilitated. Safe/stable for home, continue aspirin Eliquis and beta-octavia. Discussed adequate hydration goals. Resident Activity Tracking Resident Involvement: Resident Care Provided Care Provided: Adult [facility]
[2024-10-29 17:17] VITALS: PULSE 71
--- NOTE | 2024-10-29 18:20 | Billing Data ---
Date of Service October 29, 2024 Coding Level of Care Code 12428 IN/OBS DISCH 30 MIN/LESS
== END 2024-10-29 17:33 | disposition home or self-care (01) ==
LOC: 2E 17:06 → ED 17:06 → SUATTDRO 20:03 → 2E 21:46